=== PATIENT | female | born 1965 ===

== ENCOUNTER 2020-07-27 10:47 | Outpatient (REF) | payer MEDICAID, SELFPAY ==
--- NOTE | 2020-07-27 | MM_ITS ---
EXAMINATION: MM SCREENING DIGITAL BREAST TOMOSYNTHESIS, BILATERAL CLINICAL INFORMATION: Screening. Asymptomatic. The lifetime risk of breast cancer based on the Tyrer-Cuzick Model is 6.8%. COMPARISON: Mammography: January 05, 2019 and studies dating back to February 17, 2010 TECHNIQUE: Digital breast tomosynthesis is performed in both the craniocaudal and mediolateral oblique views along with computer-aided detection (CAD). Synthesized 2D images are generated from the tomosynthesis. FINDINGS: The breasts are heterogeneously dense, which may obscure small masses (ACR BI-RADS breast composition Category c). There are no significant masses, abnormal calcifications, or other abnormalities. There are some stable circumscribed densities seen bilaterally. MM/MM tomosynthesis screening BI IMPRESSION: There are no significant changes from prior study. ASSESSMENT: BI-RADS 1: Negative RECOMMENDATION: Routine annual mammography screening. This patient's information was entered into a reminder system with a target due date for their next mammogram.
== END 2020-07-27 10:48 | disposition home or self-care (01) ==
LOC: HO.MAMMO 10:47
PROVIDERS: PCP Nurse Practitioner Family; Visit Provider Nurse Practitioner Family
DX: Z12.31 Encounter for screening mammogram for malignant neoplasm of breast (principal)
CPT/HCPCS: 77063; 77067

== ENCOUNTER 2021-03-14 18:55 | Emergency (ER) | payer MEDICAID, SELFPAY ==
[2021-03-14 19:41] VITALS: BP 125/75; PULSE 89; RESP 16; TEMP 37.2; O2SAT 95; BMI 35.9
--- NOTE | 2021-03-14 20:14 | ED.EAR ---
HPI - Ear Problem General Chief complaint: Ear Problems Stated complaint: ear pain Time Seen by Provider: 03/14/21 20:08 History of Present Illness HPI Narrative: Patient complains of left ear pain for several days, no injury no fever no chills no dizziness no headache Related Data Previous Rx's Medication Instructions Recorded azithromycin [Zithromax Z-Kostas] 250 mg PO DAILY #4 tab 03/14/21 Allergies Allergy/AdvReac Type Severity Reaction Status Date / Time Penicillins [PCN] Allergy Intermediate RASH Verified 03/14/21 20:57 penicillin G Allergy Unknown Rash Verified 03/14/21 20:57 penicillin V Allergy Unknown Rash Verified 03/14/21 20:57 Review of Systems Review of Systems: positive for left ear pain Negatives are no fever no chills no dizziness no weakness no headache no vision changes no sore throat no cough no rashes no numbness weakness or tingling Yes all other systems are reviewed and are negative PMFSH Past Medical History Source: nursing notes reviewed Medical History (Updated 03/15/21 @ 00:01 by Antonino Mathur) Asthma Diabetes High cholesterol Thyroid disease Social History Social History Advance Directives: No Advance Directives Information Provided: Yes Patient : No Physical Exam Vital Signs: Vital Signs: Last Vital Signs Temp 99.0 F 03/14/21 19:41 Pulse 89 03/14/21 19:41 Resp 16 03/14/21 19:41 BP 125/75 03/14/21 19:41 Pulse Ox 95 03/14/21 19:41 Body Mass Index 35.9 general appearance no distress Pupils equal round reactive to light Extraocular motions are intact Left ear has patent ear canal which is not read there is no tenderness with movement of the auricle or pressing on the tragus The tympanic membrane is red, a scant amount of wax obscures a small piece of the tympanic membrane There is no redness or swelling in the mastoid area behind the ear Right ear has a normal tympanic membrane and normal canal Sinuses are nontender The pharynx is clear with moist mucous membranes no redness swelling or exudate Respiratory no distress Lungs are clear to auscultation bilateral Skin no rashes Course Course Course Narrative: exam is consistent with otitis media and patient is treated with antibiotic Discharge Plan Discharge Clinical Impression: Otitis media Patient Disposition: Home, Self-Care Additional Instructions: We are trying Zithromax for your left ear infection Follow with primary doctor in 2-3 days if not better Return to the ER any time for any worsening pain fever any worse condition or any concerns Prescriptions: New azithromycin [Zithromax Z-Kostas] 250 mg tablet 250 mg PO DAILY Qty: 4 RF: 0 Interventions: ED Discharge Assessment Last Done: 03/14/21 20:59 Discharge Date/Time: 03/14/21 21:06
[2021-03-14] MEDS: Azithromycin 500 MG TABLET PO (21:06)
== END 2021-03-14 21:06 | disposition home or self-care (01) ==
PROVIDERS: Emergency Provider Emergency Medicine
DX: H66.92 Otitis media, unspecified, left ear (principal)
CPT/HCPCS: 99283

== ENCOUNTER 2021-03-29 10:45 | Outpatient (REF) | payer MEDICAID, SELFPAY | END 2021-03-29 10:46 | disposition home or self-care (01) | LOC: HO.LAB 10:45 | PROVIDERS: Visit Provider Internal Medicine | DX: Z20.822 Contact with and (suspected) exposure to COVID-19 (principal) | CPT/HCPCS: C9803; U0003; U0005 ==

== ENCOUNTER 2021-08-08 07:51 | Outpatient (REF) | payer MEDICAID, SELFPAY ==
--- NOTE | ~2021-08-08 | MM_ITS ---
EXAMINATION: MM SCREENING DIGITAL BREAST TOMOSYNTHESIS, BILATERAL CLINICAL INFORMATION: Screening. Asymptomatic. The lifetime risk of breast cancer based on the Tyrer-Cuzick Model is 9%. COMPARISON: Mammography: 07/27/2020, 01/05/2019, 12/30/2017 TECHNIQUE: Digital breast tomosynthesis is performed in both the craniocaudal and mediolateral oblique views along with computer-aided detection (CAD). Synthesized 2D images are generated from the tomosynthesis. FINDINGS: There are scattered areas of fibroglandular density (ACR BI-RADS breast composition Category b). There are no significant masses, abnormal calcifications, or other abnormalities. Humerus remains in small round bilateral calcifications are similar to prior studies. The axilla and skin contours are unremarkable. MM/MM tomosynthesis screening BI IMPRESSION: No mammographic evidence of malignancy. ASSESSMENT: BI-RADS 2: Benign RECOMMENDATION: Routine annual mammography screening. This patient's information was entered into a reminder system with a target due date for their next mammogram.
== END 2021-08-08 07:52 | disposition home or self-care (01) ==
LOC: HO.MAMMO 07:51
PROVIDERS: PCP Nurse Practitioner Primary Care; Visit Provider Nurse Practitioner Primary Care
DX: Z12.31 Encounter for screening mammogram for malignant neoplasm of breast (principal)
CPT/HCPCS: 77063; 77067

== ENCOUNTER → 2021-08-10 09:22 | Outpatient (BNVA) | payer MEDICAID, SELFPAY | PROVIDERS: PCP Nurse Practitioner Primary Care; Visit Provider Surgery Vascular Surgery | DX: I83.11 Varicose veins of right lower extremity with inflammation (principal) | CPT/HCPCS: 99212 ==

== ENCOUNTER 2021-08-31 10:11 | Outpatient (REF) | payer MEDICAID, SELFPAY ==
--- NOTE | ~2021-08-31 | US_ITS ---
EXAMINATION: US LOWER EXTREMITY VENOUS (REFLUX EXAM), BILATERAL CLINICAL INDICATION: This is a 56-year-old female with bilateral lower extremity varicose veins, venous insufficiency. COMPARISON: None. TECHNIQUE: Color flow triplex imaging and compression Doppler was performed to evaluate both the deep and the superficial systems bilaterally. To evaluate the superficial system, the examination was performed in the upright position. Color-flow Doppler ultrasound and compression ultrasound were utilized. In addition, maneuvers were utilized to demonstrate reflux. FINDINGS: 1. DEEP VENOUS ULTRASOUND OF THE RIGHT LOWER EXTREMITY: Common Femoral Vein: Compressible, normal respiratory variation and augmented flow. Femoral vein: Compressible, normal color flow and augmentation. Popliteal Vein: Compressible, normal augmentation. Deep Reflux: There is no evidence of reflux in the deep system in either the common femoral vein or the popliteal vein. There is no evidence of a Fairbanks's cyst. 2. SUPERFICIAL ULTRASOUND WITH DOPPLER OF RIGHT LOWER EXTREMITY: GREAT SAPHENOUS VEIN: Saphenofemoral Junction: 0.4 cm Mid Thigh: 0.3 cm Above Knee: 0.3 cm Below Knee: 0.2 cm Mid Calf: 0.1 cm Ankle: 0.1 cm GSV REFLUX: No evidence of reflux. DUPLICATED GREAT SAPHENOUS VEIN: There is a 0.2 cm lateral duplicated great saphenous vein without reflux to SMALL SAPHENOUS VEIN: Proximal: 0.2 cm Distal: 0.3 cm SSV REFLUX: No evidence of reflux. VEIN OF GIACOMINI: None Imaged. PERFORATORS: There is a 0.2 cm mid calf iv therapy nurse without reflux. VARICOSITIES: All varicose veins visualized are under 0.3 cm. No reflux is seen. 3. DEEP VENOUS ULTRASOUND OF THE LEFT LOWER EXTREMITY: Common Femoral Vein: Compressible, normal respiratory variation and augmented flow. Femoral Vein: Compressible, normal color flow and augmentation. Popliteal Vein: Compressible, normal augmentation. Deep Reflux: There is no evidence of reflux in the deep system in either the common femoral vein or the popliteal vein. There is no evidence of a Fairbanks's cyst. 4. SUPERFICIAL ULTRASOUND WITH DOPPLER OF LEFT LOWER EXTREMITY: GREAT SAPHENOUS VEIN: Saphenofemoral Junction: 0.8 cm Mid Thigh: 0.3 cm Above Knee: 0.3 cm Below Knee: 0.2 cm Mid Calf: 0.3 cm Ankle: 0.3 cm GSV REFLUX: No evidence of reflux. DUPLICATED GREAT SAPHENOUS VEIN: There is a 0.3 cm duplicated lateral great saphenous vein at the junction without reflux. SMALL SAPHENOUS VEIN: Proximal: 0.2 cm Distal: 0.2 cm SSV REFLUX: No evidence of reflux. VEIN OF GIACOMINI: None Imaged. PERFORATORS: There are 0.2 cm calf and thigh perforators without reflux. VARICOSITIES: All varicose veins visualized are under 0.3 cm without reflux. US/US venous duplex LE BI IMPRESSION: 1. There are bilateral patent great saphenous veins, duplicated lateral great saphenous veins and small saphenous veins, respectively, without evidence of reflux. 2. All varicose veins are under 0.3 cm in diameter.
== END 2021-08-31 10:12 | disposition home or self-care (01) ==
LOC: HO.US 10:11
PROVIDERS: PCP Nurse Practitioner Primary Care; Visit Provider Surgery Vascular Surgery
DX: I83.11 Varicose veins of right lower extremity with inflammation (principal)
CPT/HCPCS: 93970

== ENCOUNTER → 2021-09-07 10:18 | Outpatient (BNVA) | payer MEDICAID, SELFPAY | PROVIDERS: PCP Nurse Practitioner Primary Care; Visit Provider Surgery Vascular Surgery | DX: M79.604 Pain in right leg (principal); M79.605 Pain in left leg | CPT/HCPCS: 99212 ==

== ENCOUNTER 2022-09-26 13:03 | Outpatient (REF) | payer MEDICAID, SELFPAY ==
--- NOTE | ~2022-09-26 | US_ITS ---
EXAMINATION: US THYROID CLINICAL INFORMATION: Dysphagia. COMPARISON: None TECHNIQUE: Linear transducer grayscale and color Doppler examination with attention to the region of the thyroid. FINDINGS: Very limited examination, the thyroid gland is atrophic and heterogeneous. SIZE: Measurements of the thyroid lobes and nodules are given in sagittal, anteroposterior and transverse dimensions respectively. Right Thyroid Lobe: 2.5 x 0.7 x 0.9 cm, volume 0.8 mL. Parenchyma: The gland echotexture is heterogeneous. Thyroid vascularity is normal. Left Thyroid Lobe: 2.5 x 0.9 x 1.0 cm, volume 1.2 mL. Parenchyma: The gland echotexture is heterogeneous. Thyroid vascularity is normal. Isthmus: 0.2 cm in maximum AP dimension. No focal thyroid nodule is seen. NODES: There is a 1.9 x 0.4 x 0.8 cm well-defined oblong lymph node with a preserved fatty hilum and normal cortex in the left upper cervical region. US/US thyroid IMPRESSION: Very limited evaluation of the thyroid gland secondary to atrophy and parenchymal heterogeneity which significantly limits evaluation of nodules. Recommend correlation with prior history of thyroiditis or autoimmune disorders. No discrete greater than 1 m thyroid nodules, however as above the evaluation is limited and continue monitoring is recommended depending on the clinical level suspicious. A prominent left upper cervical lymph node appears benign in in morphology and it is likely reactive. However, if there are clinical risk factors for malignancy, a short-term follow-up could ultrasound is recommended to reassess.
== END 2022-09-26 13:04 | disposition home or self-care (01) ==
LOC: HO.US 13:03
PROVIDERS: Visit Provider Nurse Practitioner Primary Care
DX: R13.10 Dysphagia, unspecified (principal)
CPT/HCPCS: 76536

== ENCOUNTER 2023-09-10 10:09 | Outpatient (REF) | payer MEDICAID, SELFPAY ==
--- NOTE | ~2023-09-10 | XR_ITS ---
EXAMINATION: XR CHEST CLINICAL INFORMATION: Weight loss. COMPARISON: None available. TECHNIQUE: 2 views of the chest were obtained. FINDINGS: No significant abnormality is noted involving the heart, lungs, mediastinum, soft tissues. There is moderate right paravertebral dorsal spine spondylosis. XR/XR chest 2V IMPRESSION: Unremarkable chest examination.
[2023-09-10 11:18] LABS: MANUAL DIFF FLAG NO
[2023-09-10 11:29] LABS: Basophils Percent Auto 0.6 % (0-2); Eosinophils Absolute Auto 0.1 X10*3/uL (0.0-0.4); Eosinophils Percent Auto 2.3 % (0-4); Hematocrit 39.7 % (37.0-47.0); Hemoglobin 13.2 g/dl (12.0-16.0); Imm Gran Abs Auto 0.01 X10*3/uL (0.00-0.03); Imm Gran Pct Auto 0.2 % (0.0-0.4); Lymphocytes Percent Auto 32.3 % (20-40); Mean Corpuscular HGB Conc 33.2 g/dl (31.0-35.0); Mean Corpuscular Hemoglobin 28.4 pg (27.0-33.0); Mean Corpuscular Volume 85.4 fL (80.0-98.0); Mean Platelet Volume 10.8 fL (9.4-12.3); Monocytes Absolute Auto 0.5 X10*3/uL (0.1-1.2); Monocytes Percent Auto 7.7 % (2-11); Neutrophils Absolute Auto 3.5 x10*3/uL (2.0-8.3); Neutrophils Percent Auto 56.9 % (45-73); Platelet Count 274 X10*3/uL (160-400); Red Blood Count 4.65 X10*6/uL (4.20-5.50); Red Cell Distribution Width 13.7 % (11.0-16.0); White Blood Count 6.2 X10*3/uL (4.8-10.8)
[2023-09-10 11:32] LABS: Appearance Urine Clear; Color Urine Yellow; Glucose Urine UA Negative (Negative); Leukocyte Esterase Urine Trace (Negative); Nitrite Urine Negative (Negative); PH 5.5 (5.0-9.0); Specific Gravity - Urine 1.015 (1.005-1.025); UMIC TRIGGER UACC YES; Urine Blood Negative (Negative); Urine Ketones Negative (Negative); Urine Protein Negative (Neg-Trace)
[2023-09-10 11:35] LABS: Bacteria Urine None Seen (None Seen); Hyaline Casts Urine 0-2 /LPF (0-2); RBC Urine 0-2 /HPF (0-2); Squamous Epithelial Cell Urine 0-2 /HPF (0-2); WBC Urine 0-5 /HPF (0-5)
[2023-09-10 12:01] LABS: Alanine Aminotransferase 13 U/L (0-31); Albumin Level 4.4 g/dL (3.5-5.0); Alkaline Phosphatase 72 U/L (39-117); Anion Gap 13 (12-20); Aspartate Amino Transferase 16 U/L (5-31); Bilirubin Direct 0.1 mg/dL (0.0-0.5); Bilirubin Total 0.3 mg/dL (0.0-1.0); Blood Urea Nitrogen 8 mg/dL (9-16); Calcium 9.8 mg/dL (8.4-10.2); Carbon Dioxide 26 mmol/L (22-29); Chloride 107 mmol/L (96-108); Estimated Glomerular Filt Rate > 60; Glucose Random 85 mg/dL (60-115); Potassium 3.3 mmol/L (3.3-5.1); Sodium 143 mmol/L (135-145); Total Protein 7.8 g/dL (6.5-8.0)
[2023-09-10 12:09] LABS: Erythrocyte Sedimentation Rate 6 MM/HR (0-20)
[2023-09-10 13:30] LABS: TSH reflex Free T4 0.03 uIU/mL (0.32-4.0)
[2023-09-10 14:51] LABS: Free T4 (Free Thyroxine) 1.39 ng/dL (0.71-1.85)
== END 2023-09-10 10:10 | disposition home or self-care (01) ==
LOC: HO.HHCL 10:09
PROVIDERS: Visit Provider Internal Medicine
DX: R63.4 Abnormal weight loss (principal)
CPT/HCPCS: 36415; 71046; 80048; 80076; 81001; 84439; 84443; 85025; 85652

== ENCOUNTER 2023-09-20 10:18 | Outpatient (REF) | payer MEDICAID, SELFPAY ==
--- NOTE | ~2023-09-20 | MM_ITS ---
EXAMINATION: MM SCREENING DIGITAL BREAST TOMOSYNTHESIS, BILATERAL CLINICAL INFORMATION: Screening. Asymptomatic. COMPARISON: Mammography: 08/08/2021, 07/27/2020, 01/05/2019, 12/30/2017 TECHNIQUE: Digital breast tomosynthesis is performed in both the craniocaudal and mediolateral oblique views along with computer-aided detection (CAD). Synthesized 2D images are generated from the tomosynthesis. FINDINGS: The breasts are heterogeneously dense, which may obscure small masses (ACR BI-RADS breast composition Category c). There are no suspicious masses, suspicious grouped calcifications, or areas of architectural distortion in either breast. The parenchymal pattern is stable from prior exams. There are bilateral punctate scattered benign type calcifications, unchanged from prior. No skin or axillary abnormalities. MM/MM tomosynthesis screening BI IMPRESSION: No mammographic evidence of malignancy. Stable benign findings. ASSESSMENT: BI-RADS BI-RADS 2 - Benign Findings RECOMMENDATION: Routine annual mammography screening. 1 year F/U This examination should not preclude the clinical evaluation of a suspicious palpable abnormality. This patient's information was entered into a reminder system with a target due date for their next mammogram.
== END 2023-09-20 10:19 | disposition home or self-care (01) ==
LOC: HO.MAMMO 10:18
PROVIDERS: PCP Internal Medicine; Visit Provider Internal Medicine
DX: Z12.31 Encounter for screening mammogram for malignant neoplasm of breast (principal)
CPT/HCPCS: 77063; 77067

== ENCOUNTER → 2023-09-20 11:15 | Outpatient (BNV) | payer MEDICAID, SELFPAY | PROVIDERS: PCP Internal Medicine; Visit Provider Radiology Diagnostic Radiology | DX: Z12.31 Encounter for screening mammogram for malignant neoplasm of breast (principal) | CPT/HCPCS: 77063; 77067 ==

== ENCOUNTER 2023-11-17 13:06 | Emergency (ER) | payer MEDICAID, SELFPAY ==
--- NOTE | ~2023-11-17 | XR_ITS ---
EXAMINATION: XR CHEST CLINICAL INFORMATION: Cough, shortness of breath COMPARISON: X-ray 09/10/2023 TECHNIQUE: 2 views of the chest were obtained. FINDINGS: Normal cardiac and mediastinal silhouette. There are airspace opacities in the right mid and lower lung. Bronchial wall thickening in the right lung.. There is bronchial wall thickening and peribronchial opacities in the left mid and lower lung. Findings could reflect infectious or inflammatory process. No significant effusion. No pulmonary edema. No pneumothorax. Thoracic spine degeneration. XR/XR chest 2V IMPRESSION: Bilateral bronchial wall thickening and peribronchial opacities.. Airspace opacities in the right mid and lower lung. Findings are from infectious or inflammatory process.
--- NOTE | 2023-11-17 13:09 | ED.URI ---
HPI - URI/Sore Throat General Chief Complaint: Upper Respiratory Symptoms Stated Complaint: Fever/Cough/Headache Time Seen by Provider: 11/17/23 13:39 Source: patient and hourly sign language interpreter (cameroonian) Mode of arrival: ambulatory Limitations: no limitations History of Present Illness HPI Narrative: 58 year old female with pmhx significant for asthma, HTN, DM, hypothyroid, presents to the emergency department for evaluation of dry cough since being diagnosed with the flu 2 weeks ago. She denies sputum production. She endorses that the cough is worse at night when she lies down to sleep. Denies having to prop herself up with multiple pillows. She has been using her inhaler at home without relief of symptoms. Denies fever, chills, dizziness, headache, sore throat, chest pain, palpitations, difficulty breathing, hemoptysis, N/V, calf pain. Denies recent travel or long car rides. parts interpreter utilized to communicate with patient throughout visit. Related Data Home Medications Medication Instructions Recorded Confirmed alcohol swabs (Alcohol Prep Pads) pad topical DAILY 08/10/21 aspirin 81 mg tablet,delayed 81 mg PO DAILY 08/10/21 release atorvastatin 20 mg tablet 20 mg PO DAILY 08/10/21 blood sugar diagnostic (FreeStyle #10 ea 08/10/21 Lite Strips) cholecalciferol (vitamin D3) 50 50 mcg PO DAILY 08/10/21 mcg (2,000 unit) tablet fluconazole 150 mg tablet 0 mg PO 08/10/21 levothyroxine 88 mcg tablet 88 mcg PO DAILY 08/10/21 lisinopril 40 mg tablet 40 mg PO DAILY 08/10/21 metformin 1,000 mg tablet 1,000 mg PO 08/10/21 metronidazole 0.75 % topical gel topical 08/10/21 Previous Rx's Medication Instructions Recorded azithromycin 250 mg tablet 250 mg PO DAILY #4 tabs 03/14/21 (Zithromax Z-Kostas) azithromycin 250 mg tablet See Rx Instructions PO .COMPLEX #6 11/17/23 (Zithromax) tabs benzonatate 100 mg capsule 100 mg PO BID PRN cough #20 caps 11/17/23 prednisone 20 mg tablet 20 mg PO DAILY 5 days #5 tabs 11/17/23 Allergies Allergy/AdvReac Type Severity Reaction Status Date / Time Penicillins [PCN] Allergy Intermediate RASH Verified 09/07/21 10:25 penicillin G Allergy Unknown Rash Verified 09/07/21 10:25 penicillin V Allergy Unknown Rash Verified 09/07/21 10:25 FORMERLY [facility], [facility] Past Medical History Attestation statement: The following information was validated with the patient. Source: old records reviewed and nursing notes reviewed Medical History Lab test positive for detection of COVID-19 virus Hypercholesteremia Other abnormal glucose Obesity (BMI 30.0-34.9) HTN (hypertension) Hypothyroidism Asthma Thyroid disease High cholesterol Diabetes Social History Social History Patient Tobacco Use Status: Never used Tobacco Advance Directives: No Advance Directives Information Provided: Yes Physical Exam Vital Signs: Vital Signs: Last Vital Signs Temp 97.8 F 11/17/23 13:11 Pulse 85 11/17/23 13:11 Resp 18 11/17/23 13:11 BP 142/82 H 11/17/23 13:11 Pulse Ox 96 11/17/23 13:11 O2 Del Method Room Air 11/17/23 13:11 BMI result Body Mass Index 26.7 Hypertensive, vitals otherwise wnl Const: General: cooperative, healthy appearing, comfortable and no acute distress Orientation/consciousness: patient oriented x3 Limitations: no limitations HEENT: Other: posterior oropharynx without erythema or edema. no tonsillar enlargement or exudates. uvula midline. speaking in complete sentences. Head: Yes normal to inspection, Yes No palpable skull fracture present, Yes normocephalic and Yes atraumatic Ears: hearing grossly normal bilaterally, external ears normal, TM normal on the left, EAC's normal, mastoids normal and no periauricular adenopathy General nose exam: Normal external nose present and No nasal discharge present Eyes: General: appearance normal, both eyes and all related structures Conjunctivae: conjunctivae normal Sclerae: sclerae normal Pupils: Equal, round and reactive pupils present Neck: Neck: Yes normal visual inspection, Yes no lymphadenopathy and Yes no meningeal signs Resp: Effort & Inspection: normal respiratory effort, able to speak in complete sentences, Actively coughing and no respiratory distress Auscultation: clear to auscultation bilaterally Cardio: Jugular venous distension: no JVD Rate: regular rate Rhythm: regular rhythm GI: Inspection: Yes normal to inspection Palpation (GI): Soft to palpation and nontender Skin: General skin exam: no rashes or lesions noted Neuro: General: patient oriented x3, gait normal and no meningeal signs Cranial nerves: Yes Equal, round and reactive pupils present Course Course Course Narrative: This is an RME: Additional HPI, ROS, PE not included below will be deferred to primary provider. Patient is a 58-year-old female presents emergency department for evaluation of 2 weeks with nonproductive cough, chills, dry throat, shortness of breath, headache. Denies any known sick contacts. Reports having an inhaler at home does not provide her any relief. Plan: Viral testing, CXR Reevaluation(s) Reevaluation #1: 1532-- Patient has tested negative for flu, covid, rsv. CXR shows bilateral bronchial wall thickening and peribronchial opacitis along with airspace opacitis in the right-mid and lower lung > concern for atypical pneumonia. Z-Kostas sent to pharmacy to treat for pneumonia. Informed patient of results. Advised her to follow-up with her primary care provider within the next 1-2 weeks for repeat chest x-ray to ensure resolution. Will also send prednisone and Tessalon Perles to pharmacy. Patient has remained stable throughout ED visit today. Discussed worrisome signs and symptoms and when to return to the ED. All questions answered at this time. Patient is agreeable with disposition and stable for discharge. Medications Administered Discontinued Medications Generic Name Dose Route Start Last Admin Trade Name Freq PRN Reason Stop Dose Admin Benzonatate 100 mg 11/17/23 14:14 11/17/23 14:29 Benzonatate 100 Mg Capsule PO 11/17/23 14:15 100 mg ONCE ONE Administration Medical Decision Making Medical Decision Making [facility] Narrative: 58 year old female with pmhx significant for asthma, HTN, DM, hypothyroid, presents to the emergency department for evaluation of dry cough since being diagnosed with the flu 2 weeks ago. Patient hypertensive, vitals otherwise WNL. She is nontoxic-appearing and in no acute distress. Actively coughing on exam. RRR. Lungs CTA bilaterally, no wheezes or rhonchi. No calf tenderness. No JVD or peripheral edema. Differential diagnosis includes viral syndrome, pneumonia. Lower suspicion for pulmonary embolism, ACS, arrhythmia, CHF Plan for virus serology, chest x-ray and re-evaluation. Differential Diagnosis Differential Diagnoses: The differential diagnosis associated with the presentation includes as above. Admission/Observation Not indicated Lab Data MDM Lab Attestation statement: I reviewed the patient's lab results. as above. Labs: Lab Results 11/17/23 Range/Units 13:40 Influenza Type A (PCR) NEGATIVE (Negative) Influenza Type B (PCR) NEGATIVE (Negative) RSV RNA Qual (PCR) NEGATIVE (Negative) SARS-CoV-2 RNA (RT-PCR) NEGATIVE (Negative) Independent Interpretation I performed an independent interpretation of an: Plain X-Ray Interpretation: I have reviewed CXR and agree with radiologist's interpretation. Radiology Impression Discussion of test interpretation with radiology: I have reviewed the radiologist's reading. Radiologist Impression: XR chest 2V IMPRESSION: Bilateral bronchial wall thickening and peribronchial opacities.. Airspace opacities in the right mid and lower lung. Findings are from infectious or inflammatory process. External Record Review External record reviewed: Inpatient record, Office record, Outpatient record, Prior outpatient labs, Prior outpatient radiology, Primary care record and Outside ED record Prescription Management I considered prescription management with: Antibiotic (Azithromycin) Chronic Conditions Patient?s care impacted by: Other (asthma) Discharge Plan Discharge Clinical Impression: Atypical pneumonia Patient Disposition: Home, Self-Care Instructions: Upper Respiratory Infection (ED), Pneumonia (ED) Additional Instructions: You tested negative for covid, flu, and RSV. Your chest xray shows signs of pneumonia. The treatment for this is antibiotics. Azithromycin (z-pack) is an antibiotic that has been sent to your pharmacy treat this. Please take this as prescribed. Do not skip any doses or stop taking this early as this may cause infection to return or worsen. Please follow-up with your primary care provider in 2 weeks for repeat imaging to ensure that the infection has resolved. Prednisone as a steroid that has been sent to your pharmacy. Take this as prescribed for the next 5 days to help with airway inflammation. Tessalon Perles have been sent to your pharmacy. Take this as needed for cough. You tolerated a dose of this in the emergency department today. For new or worsening symptoms, please return to the ED. In the case of emergency, call 911. Ray negativo en covid, gripe y VRS. Kolb radiograf?a de t?rax muestra signos de neumon?a. El tratamiento para esto son los antibi?ticos. Azitromicina (z-pack) es un antibi?nathaniel que se envi? a kolb farmacia para tratar esto. T?rust seg?n lo prescrito. No se salte ninguna dosis ni deje de tomarlo antes de tiempo, ya que esto puede provocar que la infecci?n regrese o empeore. Mitchell un seguimiento con kolb proveedor de atenci?n primaria en 2 semanas para repetir las im?genes y asegurarse de que la infecci?n se haya resuelto. Prednisona álvaro esteroide que anthony sido enviada a kolb farmacia. T?rust seg?n lo prescrito ned los pr?ximos 5 d?as para ayudar con la inflamaci?n de las v?as respiratorias. Tessalon Perles cornelius sido enviados a kolb farmacia. T?rust seg?n sea necesario para la tos. Hoy gab? batool dosis de esto en el departamento de emergencias. Si los s?ntomas son nuevos o empeoran, regrese al servicio de urgencias. En anahi de emergencia, llame al 911. Prescriptions: New benzonatate 100 mg capsule 100 mg PO BID PRN (Reason: cough) Qty: 20 0RF prednisone 20 mg tablet 20 mg PO DAILY 5 Days Qty: 5 0RF azithromycin [Zithromax] 250 mg tablet See Rx Instructions .ROUTE .COMPLEX Qty: 6 0RF Rx Instructions: For 250 mg dose pack: take 500 mg today (day 1), then 250 mg for 4 days (days 2-5) No Action azithromycin [Zithromax Z-Kostas] 250 mg tablet 250 mg PO DAILY Qty: 4 0RF Rx Instructions: We gave 1st dose in ER today Saturday, next dose is tomorrow Anju metronidazole 0.75 % gel topical levothyroxine 88 mcg tablet 88 mcg PO DAILY fluconazole 150 mg tablet 0 mg PO cholecalciferol (vitamin D3) 50 mcg (2,000 unit) tablet 50 mcg PO DAILY lisinopril 40 mg tablet 40 mg PO DAILY metformin 1,000 mg tablet 1,000 mg PO atorvastatin 20 mg tablet 20 mg PO DAILY alcohol swabs [Alcohol Prep Pads] Pads, Medicated topical DAILY aspirin 81 mg tablet,delayed release (DR/EC) 81 mg PO DAILY (DME) FreeStyle Lite Strips Strip See Rx Instructions Not Applicable DAILY Qty: 10 Rx Instructions: As directed Referrals: Jin Allen MD [Primary Care Provider] - Interventions: ED Discharge Assessment Last Done: 11/17/23 15:35 Discharge Date/Time: 11/17/23 15:36 Print Language: Lao
[2023-11-17 13:11] VITALS: BP 142/82; PULSE 85; RESP 18; TEMP 36.6; O2SAT 96; BMI 26.7
[2023-11-17 14:22] LABS: Influenza A PCR NEGATIVE (Negative); Influenza B PCR NEGATIVE (Negative); Resp Syncy Virus RNA Qual PCR NEGATIVE (Negative); SARS COV2 PCR INHOUSE NEGATIVE (Negative)
[2023-11-17] MEDS: Benzonatate 100 MG CAPSULE PO (14:29)
== END 2023-11-17 15:36 | disposition home or self-care (01) ==
PROVIDERS: Nurse Practitioner Family; Emergency Provider Emergency Medicine; PCP Internal Medicine
DX: J18.9 Pneumonia, unspecified organism (principal); R50.9 Fever, unspecified; R05.9 Cough, unspecified; R51.9 Headache, unspecified; I10 Essential (primary) hypertension; Z11.52 Encounter for screening for COVID-19; Z20.822 Contact with and (suspected) exposure to COVID-19; Z79.84 Long term (current) use of oral hypoglycemic drugs; Z79.899 Other long term (current) drug therapy
CPT/HCPCS: 0241U; 71046; 99282; 99283

== ENCOUNTER 2023-11-18 14:56 | Emergency (ER) | payer MEDICAID, SELFPAY ==
--- NOTE | ~2023-11-18 | XR_ITS ---
EXAMINATION: XR CHEST CLINICAL INFORMATION: Worsening cough, pneumonia. COMPARISON: Chest radiograph 11/17/2023. TECHNIQUE: 2 views of the chest were obtained. FINDINGS: Peribronchial thickening and multifocal consolidative opacities are not convincingly changed. No pleural effusion or pneumothorax. Normal appearance of the cardiomediastinal silhouette. Thoracic spondylosis. No acute osseous findings. XR/XR chest 2V IMPRESSION: No significant change compared to chest radiograph from the day before.
[2023-11-18 15:15] VITALS: BP 134/80; PULSE 75; O2SAT 100
[2023-11-18 16:46] VITALS: BP 154/67; PULSE 74; RESP 16; TEMP 36.7; O2SAT 99; BMI 25.9
--- NOTE | 2023-11-18 16:46 | ED.SOB ---
HPI - SOB/Dyspnea General Chief Complaint: Dyspnea Stated Complaint: SOB,PNA T-1,MEDS NOT WORKING PER EMS Time Seen by Provider: 11/18/23 18:14 Source: patient and RN notes reviewed Mode of arrival: EMS Limitations: language barrier History of Present Illness HPI Narrative: 58-year-old female presents for evaluation of cough and shortness of breath. She was seen here yesterday and diagnosed with atypical pneumonia. She was discharged with azithromycin, prednisone and benzonatate Perles. She reports no improvement in her symptoms and feels that her cough is worse No new symptoms Related Data Home Medications Medication Instructions Recorded Confirmed alcohol swabs (Alcohol Prep Pads) pad topical DAILY 08/10/21 aspirin 81 mg tablet,delayed 81 mg PO DAILY 08/10/21 release atorvastatin 20 mg tablet 20 mg PO DAILY 08/10/21 blood sugar diagnostic (FreeStyle #10 ea 08/10/21 Lite Strips) cholecalciferol (vitamin D3) 50 50 mcg PO DAILY 08/10/21 mcg (2,000 unit) tablet fluconazole 150 mg tablet 0 mg PO 08/10/21 levothyroxine 88 mcg tablet 88 mcg PO DAILY 08/10/21 lisinopril 40 mg tablet 40 mg PO DAILY 08/10/21 metformin 1,000 mg tablet 1,000 mg PO 08/10/21 metronidazole 0.75 % topical gel topical 08/10/21 Previous Rx's Medication Instructions Recorded azithromycin 250 mg tablet 250 mg PO DAILY #4 tabs 03/14/21 (Zithromax Z-Kostas) azithromycin 250 mg tablet See Rx Instructions PO .COMPLEX #6 11/17/23 (Zithromax) tabs benzonatate 100 mg capsule 100 mg PO BID PRN cough #20 caps 11/17/23 prednisone 20 mg tablet 20 mg PO DAILY 5 days #5 tabs 11/17/23 cefuroxime axetil 500 mg tablet 500 mg PO Q12H #13 tabs 11/18/23 Allergies Allergy/AdvReac Type Severity Reaction Status Date / Time Penicillins [PCN] Allergy Intermediate RASH Verified 09/07/21 10:25 penicillin G Allergy Unknown Rash Verified 09/07/21 10:25 penicillin V Allergy Unknown Rash Verified 09/07/21 10:25 Review of Systems Constitutional: Constitutional: Denies body ache(s), Reports chills, Denies fever(s), Reports malaise and Reports weakness Eyes: Eyes: Denies blurry vision Cardiovascular: Cardiovascular: Denies chest pain, Denies leg edema and Reports dyspnea Respiratory: Respiratory: Reports chest congestion, Reports cough and Reports dyspnea Gastrointestinal: Gastrointestinal: Denies abdominal pain, Denies nausea and Denies vomiting Musculoskeletal: Musculoskeletal: Denies back pain Integumentary/Breasts: Skin/Breast: Denies rash Neurologic: Reports weakness PMFSH Past Medical History Medical History Lab test positive for detection of COVID-19 virus Hypercholesteremia Other abnormal glucose Obesity (BMI 30.0-34.9) HTN (hypertension) Hypothyroidism Asthma Thyroid disease High cholesterol Diabetes Social History Social History Patient Tobacco Use Status: Never used Tobacco Advance Directives: No Advance Directives Information Provided: No Physical Exam Vital Signs: Vital Signs: Last Vital Signs Temp 98.1 F 11/18/23 16:46 Pulse 74 11/18/23 16:46 Resp 16 11/18/23 16:46 BP 154/67 H 11/18/23 16:46 Pulse Ox 99 11/18/23 16:46 O2 Del Method Room Air 11/18/23 16:46 BMI result Body Mass Index 25.9 Const: General: healthy appearing, comfortable, no acute distress, alert and awake Nutritional Appearance: well nourished Orientation/consciousness: patient oriented x3 HEENT: Head: Yes normocephalic and Yes atraumatic Eyes: Eyelids: Yes eyelids normal Conjunctivae: conjunctivae normal Sclerae: sclerae normal Corneas: corneas normal Pupils: Equal, round and reactive pupils present EOM: EOMs intact bilaterally Neck: Neck: Yes full ROM Resp: Effort & Inspection: normal respiratory effort, able to speak in complete sentences, no audible wheezes and not labored Auscultation: clear to auscultation bilaterally Cardio: Rate: regular rate Rhythm: regular rhythm Skin: General skin exam: elasticity normal Neuro: General: patient oriented x3 Cranial nerves: Yes Equal, round and reactive pupils present and Yes Bilaterally intact EOM present Cognition (Neuro): normal cognition Course Course Course Narrative: RME:?58 yo english speaking female w/ hx of asthma, HTN, DM, hypothyroid, BIBA for eval of cough since testing positive for Flu at home 2 wks ago. Seen here yesterday. Tested negative for covid/flu/rsv. vitals wnl. not hypoxic. exam benign. CXR showing atypial pneumonia- d/c home with zpak, prednisone and tessalon perrles. has been taking medications without relief of symptoms. took 2 doses of azithromycin. states her cough is worse than yesterday. her medications are written in Nepali and she states she has been unable to read the instructions on them. she seems confused about when to take these medications. PE: +crackles to right lung base, afebrile, not hypoxic. given PNA, will order repeat cxr Full HPI, ROS and PE to be performed by the primary ED provider. Medical Decision Making Medical Decision Making [facility] Narrative: Patient presents for evaluation of continued cough, shortness of breath. She was diagnosed with pneumonia yesterday. She is not hypoxic, febrile, tachycardic or tachypneic. Chest x-ray reveals essentially unchanged imaging. The patient is able to tolerate p.o.. An ambulation trial was obtained with O2 monitoring the patient's oxygen saturation remained 96% or higher. I discussed with the patient that she should not expect to be 100% better within 24 hours of starting antibiotic use. I will add on a beta-lactam to complete coverage for community-acquired pneumonia. The patient is stable for discharge Differential Diagnosis Differential Diagnoses: The differential diagnosis associated with the presentation includes Pneumonia Outpatient Cough COVID-19 Influenza Discharge Plan Discharge Clinical Impression: Community acquired pneumonia Patient Disposition: Home, Self-Care Instructions: Community Acquired Pneumonia (ED) Additional Instructions: Your x-ray appears essentially unchanged. Continue your home medications as prescribed Take cefuroxime twice daily for 7 days in addition to your yesterday It usually takes at least 2 days before you see improvement from the antibiotics Call your primary doctor to schedule follow-up Return for new or worsening symptoms Prescriptions: New cefuroxime axetil 500 mg tablet 500 mg PO Q12H Qty: 13 0RF No Action azithromycin [Zithromax Z-Kostas] 250 mg tablet 250 mg PO DAILY Qty: 4 0RF Rx Instructions: We gave 1st dose in ER today Saturday, next dose is tomorrow Saturday benzonatate 100 mg capsule 100 mg PO BID PRN (Reason: cough) Qty: 20 0RF prednisone 20 mg tablet 20 mg PO DAILY 5 Days Qty: 5 0RF azithromycin [Zithromax] 250 mg tablet See Rx Instructions .ROUTE .COMPLEX Qty: 6 0RF Rx Instructions: For 250 mg dose pack: take 500 mg today (day 1), then 250 mg for 4 days (days 2-5) metronidazole 0.75 % gel topical levothyroxine 88 mcg tablet 88 mcg PO DAILY fluconazole 150 mg tablet 0 mg PO cholecalciferol (vitamin D3) 50 mcg (2,000 unit) tablet 50 mcg PO DAILY lisinopril 40 mg tablet 40 mg PO DAILY metformin 1,000 mg tablet 1,000 mg PO atorvastatin 20 mg tablet 20 mg PO DAILY alcohol swabs [Alcohol Prep Pads] Pads, Medicated topical DAILY aspirin 81 mg tablet,delayed release (DR/EC) 81 mg PO DAILY (DME) FreeStyle Lite Strips Strip See Rx Instructions Not Applicable DAILY Qty: 10 Rx Instructions: As directed
[2023-11-18] MEDS: cefuroxime axetiL 500 MG TABLET PO (18:48)
== END 2023-11-18 18:52 | disposition home or self-care (01) ==
PROVIDERS: Emergency Provider Emergency Medicine; PCP Internal Medicine
DX: J18.9 Pneumonia, unspecified organism (principal); J45.909 Unspecified asthma, uncomplicated; I10 Essential (primary) hypertension; E11.9 Type 2 diabetes mellitus without complications; Z88.0 Allergy status to penicillin
CPT/HCPCS: 71046; 99282; 99283

== ENCOUNTER 2023-12-02 09:30 | Outpatient (REF) | payer MEDICAID, SELFPAY ==
--- NOTE | ~2023-12-02 | XR_ITS ---
EXAMINATION: XR CHEST CLINICAL INFORMATION: Atypical pneumonia. Evaluate for resolution. COMPARISON: 11/18/2023 TECHNIQUE: 2 views of the chest were obtained. FINDINGS: The lungs are well expanded. Interval improvement in right upper lobe consolidation as well as multifocal patchy airspace disease. No pleural effusion. Cardiac silhouette is unchanged. XR/XR chest 2V IMPRESSION: Interval improvement.
[2023-12-02 11:54] LABS: Cholesterol 163 mg/dL (<200); HDL Cholesterol 58 mg/dL (>40); LDL Cholesterol Calculated 89 mg/dL (<100); Triglycerides 83 mg/dL (<150)
[2023-12-02 12:27] LABS: Folate 5.3 ng/mL (> or = 4.0); Vitamin B12 277 pg/mL (200-900)
== END 2023-12-02 09:31 | disposition home or self-care (01) ==
LOC: HO.HHCL 09:30
PROVIDERS: Visit Provider Nurse Practitioner Primary Care
DX: J18.9 Pneumonia, unspecified organism (principal); E11.69 Type 2 diabetes mellitus with other specified complication; E78.5 Hyperlipidemia, unspecified
CPT/HCPCS: 36415; 71046; 80061; 82607; 82746

== ENCOUNTER 2024-01-17 09:09 | Outpatient (REF) | payer MEDICAID, SELFPAY ==
[2024-01-17 12:46] LABS: TSH reflex Free T4 0.76 uIU/mL (0.32-4.0)
== END 2024-01-17 09:10 | disposition home or self-care (01) ==
LOC: HO.HHCL 09:09
PROVIDERS: Visit Provider Nurse Practitioner Primary Care
DX: E03.9 Hypothyroidism, unspecified (principal)
CPT/HCPCS: 36415; 84443

== ENCOUNTER 2024-01-22 08:47 | Outpatient (REF) | payer MEDICAID, SELFPAY ==
--- NOTE | ~2024-01-22 | US_ITS ---
EXAMINATION: US THYROID CLINICAL INFORMATION: Dysphagia. COMPARISON: Ultrasound soft tissue head/neck thyroid dated 09/26/2022. TECHNIQUE: Linear transducer grayscale and color Doppler examination with attention to the region of the thyroid. FINDINGS: SIZE: Measurements of the thyroid lobes and nodules are given in sagittal, anteroposterior and transverse dimensions respectively. Right Thyroid Lobe: 3.0 x 1.0 x 0.8 cm, volume 1.2 mL. Previously 2.5 x 0.7 x 0.9 cm, volume 0.8 mL. Parenchyma: The gland echotexture is heterogeneous. Thyroid vascularity is normal. Left Thyroid Lobe: 2.1 x 0.8 x 0.6 cm, volume 0.5 mL. Previously 2.5 x 0.9 x 1.0 cm, volume 1.2 mL. Parenchyma: The gland echotexture is heterogeneous. Thyroid vascularity is normal. Isthmus: 0.3 cm in maximum AP dimension. Previously 0.2 cm. No focal thyroid nodule is seen. NODES: No lymphadenopathy is seen in the tissue surrounding the thyroid gland. US/US thyroid IMPRESSION: Small heterogeneous thyroid gland with normal vascularity. ACR TI-RADS RECOMMENDATION REFERENCE: Ultrasound-guided fine-needle aspiration, follow up ultrasound, no further followup. * TR1 (0 point) and TR2 (2 points): No FNA or followup * TR3 (3 points): FNA if more than or equal to 2.5 cm in maximum dimension, follow up ultrasound in 1, 3 and 5 years if 1.5 to 2.4 cm in maximum dimension. * TR4 (4-6 points): FNA if more than or equal to 1.5 cm in maximum dimension, follow up ultrasound in 1, 2, 3 and 5 years if 1 to 1.4 cm in maximum dimension. * TR5 (more than or equal to 7 points): FNA if more than or equal to 1 cm in maximum dimension, follow up ultrasound every year for 5 years if 0.5 to 0.9 cm in maximum dimension. * TR3, TR4 or TR5 nodules that are below the size threshold for follow up receive no followup.
== END 2024-01-22 08:48 | disposition home or self-care (01) ==
LOC: HO.US 08:47
PROVIDERS: PCP Internal Medicine; Visit Provider Nurse Practitioner Primary Care
DX: R13.10 Dysphagia, unspecified (principal)
CPT/HCPCS: 76536

== ENCOUNTER 2024-07-27 17:19 | Outpatient (REF) | payer MEDICAID, SELFPAY ==
[2024-07-28 10:24] LABS: HPV 16,18/45 See PAP report
== END 2024-07-27 17:20 | disposition home or self-care (01) ==
LOC: HO.HHCLNP 17:19
PROVIDERS: Visit Provider Advanced Practice Midwife
DX: Z01.419 Encounter for gynecological examination (general) (routine) without abnormal findings (principal)
CPT/HCPCS: 87624; 88175

== ENCOUNTER 2024-08-15 11:38 | Emergency (ER) | payer MEDICAID, SELFPAY ==
--- NOTE | ~2024-08-15 | XR_ITS ---
EXAMINATION: 1. RADIOGRAPHS LEFT SHOULDER 2. RADIOGRAPHS LEFT HUMERUS CLINICAL INFORMATION: Fall 2 weeks ago COMPARISON: None TECHNIQUE: 3 views of the left shoulder and 2 views of the left humerus were obtained. Today's examination is mildly limited secondary to difficulties with patient positioning. FINDINGS: No fracture of the left humerus. Left humeral head demonstrates good articulation with the glenoid fossa. There are mild degenerative changes of the glenohumeral and acromioclavicular joints. Visualized portion of the left elbow are grossly unremarkable. Visualized left-sided ribs and lung parenchyma are unremarkable. There are degenerative changes within visualized portions of the thoracic spine. XR/XR humerus LT IMPRESSION: Mild degenerative changes of the left shoulder without fracture or dislocation. Electronically signed by: Prateek Tuttle MD 08/15/2024 12:29 PM [facility]
--- NOTE | ~2024-08-15 | XR_ITS ---
EXAMINATION: 1. RADIOGRAPHS LEFT SHOULDER 2. RADIOGRAPHS LEFT HUMERUS CLINICAL INFORMATION: Fall 2 weeks ago COMPARISON: None TECHNIQUE: 3 views of the left shoulder and 2 views of the left humerus were obtained. Today's examination is mildly limited secondary to difficulties with patient positioning. FINDINGS: No fracture of the left humerus. Left humeral head demonstrates good articulation with the glenoid fossa. There are mild degenerative changes of the glenohumeral and acromioclavicular joints. Visualized portion of the left elbow are grossly unremarkable. Visualized left-sided ribs and lung parenchyma are unremarkable. There are degenerative changes within visualized portions of the thoracic spine. XR/XR shoulder LT min 2V IMPRESSION: Mild degenerative changes of the left shoulder without fracture or dislocation. Electronically signed by: Prateek Tuttle MD 08/15/2024 12:29 PM [facility] PRADHAN
[2024-08-15 11:42] VITALS: BP 148/97; PULSE 62; RESP 18; TEMP 36.4; O2SAT 100; BMI 29.7
--- NOTE | 2024-08-15 11:47 | ED.UPPEXIN ---
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 She states that while changing her bed sheets, her shoe became caught causing her to fall forward onto her left shoulder. Denies head strike or LOC. She is not on anticoagulation. Reports continued left shoulder pain over the last 2 weeks. Taking Tylenol at home with minimal improvement. Reports pain primarily on lifting the left shoulder. Denies previous surgeries/ injury to shoulder. Denies numbness/tingling/weakness of the left upper extremity. Denies fever/ chills, headache, chest pain, neck or back pain. Related Data Home Medications ?Medication ?Instructions ?Recorded ?Confirmed alcohol swabs (Alcohol Prep Pads) pad topical DAILY 08/10/21 aspirin 81 mg tablet,delayed 81 mg PO DAILY 08/10/21 release atorvastatin 20 mg tablet 20 mg PO DAILY 08/10/21 blood sugar diagnostic (FreeStyle #10 ea 08/10/21 Lite Strips) cholecalciferol (vitamin D3) 50 50 mcg PO DAILY 08/10/21 mcg (2,000 unit) tablet fluconazole 150 mg tablet 0 mg PO 08/10/21 levothyroxine 88 mcg tablet 88 mcg PO DAILY 08/10/21 lisinopril 40 mg tablet 40 mg PO DAILY 08/10/21 metformin 1,000 mg tablet 1,000 mg PO 08/10/21 metronidazole 0.75 % topical gel topical 08/10/21 Previous Rx's ?Medication ?Instructions ?Recorded azithromycin 250 mg tablet 250 mg PO DAILY #4 tabs 03/14/21 (Zithromax Z-Kostas) azithromycin 250 mg tablet See Rx Instructions PO .COMPLEX #6 11/17/23 (Zithromax) tabs benzonatate 100 mg capsule 100 mg PO BID PRN cough #20 caps 11/17/23 prednisone 20 mg tablet 20 mg PO DAILY 5 days #5 tabs 11/17/23 cefuroxime axetil 500 mg tablet 500 mg PO Q12H #13 tabs 11/18/23 lidocaine 5 % topical patch 1 patch topical DAILY #15 ea 08/15/24 (Lidoderm) naproxen 500 mg tablet 500 mg PO Q12H PRN pain (scale 08/15/24 score 4-6) #20 tabs Allergies Allergy/AdvReac Type Severity Reaction Status Date / Time Penicillins [PCN] Allergy Intermediate RASH Verified 08/15/24 11:45 penicillin G Allergy Unknown Rash Verified 08/15/24 11:45 penicillin V Allergy Unknown Rash Verified 08/15/24 11:45 Review of Systems Review of Systems: Constitutional: No fever, chills, fatigue, night sweats, weight changes ENT/Mouth: No ear pain, hearing loss, nasal congestion, sinus pain, rhinorrhea, sore throat Eyes: No eye pain, swelling, redness, vision changes, discharge Cardio: No chest pain, palpitations, WILLETT, orthopnea, peripheral edema Pulm: No SOB, cough, sputum, wheezing, dyspnea, hemoptysis GI: No nausea, vomiting, hematemesis, abdominal pain, diarrhea, constipation, hematochezia, melena : No irregular bleeding, dysuria, frequency, urgency, hesitancy, hematuria, flank pain, urinary flow changes, urinary incontinence or retention MSK: No back pain, neck pain, joint pain, myalgias, +left shoulder pain Skin: No lesions, rashes Neuro: No weakness, numbness, paresthesias, LOC, dizziness, headache Psych: No anxiety/panic, depression, SI/HI, AH/VH All other systems reviewed and are negative. [facility] Past Medical History Attestation statement: The following information was validated with the patient. Source: old records reviewed and nursing notes reviewed Medical History Lab test positive for detection of COVID-19 virus Hypercholesteremia Other abnormal glucose Obesity (BMI 30.0-34.9) HTN (hypertension) Hypothyroidism Asthma Thyroid disease High cholesterol Diabetes Social History Social History Patient Tobacco Use Status: Never used Tobacco Advance Directives: No Advance Directives Information Provided: No Do you have a plan to hurt others: No Plan Physical Exam Vital Signs: Vital Signs: Last Vital Signs Temp 97.5 F 08/15/24 11:42 Pulse 62 08/15/24 11:42 Resp 18 08/15/24 11:42 BP 148/97 H 08/15/24 11:42 Pulse Ox 100 08/15/24 11:42 O2 Del Method Room Air 08/15/24 11:42 BMI result Body Mass Index 29.7 Hypertensive, vitals otherwise WNL General: Well appearing, in no acute distress. Skin: Warm, dry, intact. No rashes or lesions. Head: Normocephalic, atraumatic. EENT: Hearing is intact b/l. Conjunctiva clear. PERRLA. EOM intact. Moist mucous membranes.? Neck: Supple without LAD Cardiac: Chest wall symmetric. RRR. Lungs: Normal respiratory effort without accessory muscle use. CTA bilaterally Abdomen: Soft, non-tender, non-distended. No rebound tenderness or guarding. Back: No midline spinous or paraspinal tenderness. No step off deformity. Ext: +no overlying skin changes/ deformities. she is tender to palpation over lateral aspect of left shoulder and proximal humerus. No palpable deformity, crepitus. Limited ROM primarily with abduction. Chief Construction Inspector strength intact. Full ROM intact to left elbow, left wrist and all digits. Neurovascularly intact distally. Neuro: AOx3. Normal speech. Ambulating with steady gait. Psych: Appropriate mood and affect. Responds appropriately to questions. Course Course Course Narrative: This is a Rapid Medical Exam performed in triage by Shawanda Miller PA-C. Full HPI, ROS and PE to be performed by primary ED provider. 59-year-old female with a past medical history of hypothyroid, asthma, diabetes, HLD, HTN, presenting to the ED c/o left shoulder/ upper arm pain s/p fall off bed 2 weeks ago while changing sheets. Denies head trauma or LOC. Denies anticoagulation use PE: + tenderness to left shoulder and proximal humerus. Limited ROM secondary to pain. Neurovascularly intact distally. Mild swelling. No deformity Plan: XRs Reevaluation(s) Reevaluation #1: 6534 -- xr left shoulder/ humerus without fracture or dislocation. they do show degenerative changes within the shoulder joint. exam concerning for rotator cuff injury - difficulty with abduction. patient placed in sling. will send lido patches and naproxen to pharmacy. she tells me her blood sugar is not well controlled. intermittent compliance with her DM medications. will hold on prednisone to avoid hyperglycemia. advised to follow up with ortho - referral provided. Patient has remained stable throughout ED visit today. Discussed worrisome signs and symptoms and when to return to the ED. All questions answered at this time. Patient is agreeable with disposition and stable for discharge. Medical Decision Making Medical Decision Making MDM Narrative: 59 year old female with pmhx significant for hypothyroidism, asthma, type 2 diabetes, HDL, hypertension presents to the ED today for evaluation of left shoulder pain s/p mechanical fall 2 weeks ago. Patient is hypertensive to 148/97, vitals otherwise WNL. She is nontoxic-appearing and in no acute distress. itting comfortably on the exam bed. On exam, there are no over lying skin changes/ deformities. she is tender to palpation over lateral aspect of left shoulder and proximal humerus. No palpable deformity, crepitus. Limited ROM primarily with abduction. Chief Construction Inspector strength intact. Full ROM intact to left elbow, left wrist and all digits. Neurovascularly intact distally. Differential diagnosis includes contusion, rotator cuff injury, tendinitis, bursitis, fracture, dislocation Plan for imaging, pain control, re-evaluation. Differential Diagnosis Differential Diagnoses: The differential diagnosis associated with the presentation includes As above Admission/Observation Not indicated Independent Interpretation I performed an independent interpretation of an: Plain X-Ray Interpretation: X-ray left shoulder/humerus without fracture Radiology Impression Discussion of test interpretation with radiology: I have reviewed the radiologist's reading. Radiologist Impression: EXAMINATION: 1. RADIOGRAPHS LEFT SHOULDER 2. RADIOGRAPHS LEFT HUMERUS CLINICAL INFORMATION: Fall 2 weeks ago COMPARISON: None TECHNIQUE: 3 views of the left shoulder and 2 views of the left humerus were obtained. Today's examination is mildly limited secondary to difficulties with patient positioning. FINDINGS: No fracture of the left humerus. Left humeral head demonstrates good articulation with the glenoid fossa. There are mild degenerative changes of the glenohumeral and acromioclavicular joints. Visualized portion of the left elbow are grossly unremarkable. Visualized left-sided ribs and lung parenchyma are unremarkable. There are degenerative changes within visualized portions of the thoracic spine. XR/XR shoulder LT min 2V IMPRESSION: Mild degenerative changes of the left shoulder without fracture or dislocation. Electronically signed by: Prateek Tuttle MD 08/15/2024 12:29 PM [facility] [place] Independent Historian Clinical information obtained from an independent historian. History obtained from or confirmed by: Friend External Record Review External record reviewed: Inpatient record Prescription Management I considered prescription management with: Pain Medication (naproxen, lido patch) Chronic Conditions Patient?s care impacted by: Diabetes Social Determinants Patient?s care significantly limited by Social Determinants of Health including: Other Social Determinant of Health Procedures Orthopedic Splinting/Casting Injury #1: Side: left Upper Extremity Injury Location: shoulder Upper Extremity Immobilizer: sling/shoulder immobilizer Critical Care Time Critical Care Time Critical Care Time: No Discharge Plan Discharge Clinical Impression: Left shoulder strain Patient Disposition: Home, Self-Care Instructions: Muscle Strain (ED), Rotator Cuff Injury (ED), How to Use a Sling (ED), Shoulder Immobilizer (ED) Additional Instructions: You were evaluated in the ED today for left shoulder pain. The x-ray of your left shoulder and left upper arm are normal. They do show some degenerative changes however do not demonstrate fracture or dislocation. Your physical exam is concerning for injury to your rotator cuff muscle region. You were provided with a shoulder sling. Please wear this until follow up with either PCP or orthopedics. You have been provided with a referral to an orthopedic doctor. Call them Saturday morning to schedule an appointment. They will not call you. In the meantime, naproxen has been sent to your pharmacy for you to take as needed for pain control. This will also help with any inflammation. I have also sent lidocaine patches to your pharmacy. apply these to painful areas. Apply heat to the area. Return with new or worsening symptoms. In the case of an emergency, call 911. Prescriptions: New naproxen 500 mg tablet 500 mg PO Q12H PRN (Reason: pain (scale score 4-6)) Qty: 20 0RF lidocaine [Lidoderm] 5 % adhesive patch,medicated 1 patch topical DAILY Qty: 15 0RF Rx Instructions: leave on most painful area for up to 12 hrs No Action azithromycin [Zithromax Z-Kostas] 250 mg tablet 250 mg PO DAILY Qty: 4 0RF Rx Instructions: We gave 1st dose in ER today Saturday, next dose is tomorrow Saturday benzonatate 100 mg capsule 100 mg PO BID PRN (Reason: cough) Qty: 20 0RF prednisone 20 mg tablet 20 mg PO DAILY 5 Days Qty: 5 0RF azithromycin [Zithromax] 250 mg tablet See Rx Instructions .ROUTE .COMPLEX Qty: 6 0RF Rx Instructions: For 250 mg dose pack: take 500 mg today (day 1), then 250 mg for 4 days (days 2-5) cefuroxime axetil 500 mg tablet 500 mg PO Q12H Qty: 13 0RF metronidazole 0.75 % gel topical levothyroxine 88 mcg tablet 88 mcg PO DAILY fluconazole 150 mg tablet 0 mg PO cholecalciferol (vitamin D3) 50 mcg (2,000 unit) tablet 50 mcg PO DAILY lisinopril 40 mg tablet 40 mg PO DAILY metformin 1,000 mg tablet 1,000 mg PO atorvastatin 20 mg tablet 20 mg PO DAILY alcohol swabs [Alcohol Prep Pads] Pads, Medicated topical DAILY aspirin 81 mg tablet,delayed release (DR/EC) 81 mg PO DAILY (DME) FreeStyle Lite Strips Strip See Rx Instructions Not Applicable DAILY Qty: 10 Rx Instructions: As directed Referrals: [facility] [place] Orthopedic Surgeons [Provider Group] - 2 days (left rotator cuff injury) Print Language: Malian
--- NOTE | 2024-08-15 12:48 | MHC.EDTECH ---
left shoulder sling in place as per PA order, pt tolerated well
[2024-08-15] MEDS: Acetaminophen 325 MG TABLET 975 MG PO (13:12)
[2024-08-15 13:16] VITALS: BP 148/97; PULSE 62; RESP 18; TEMP 36.4; O2SAT 100
== END 2024-08-15 13:22 | disposition home or self-care (01) ==
PROVIDERS: Emergency Provider Emergency Medicine
DX: S46.912A Strain of unspecified muscle, fascia and tendon at shoulder and upper arm level, left arm, initial encounter (principal); W18.39XA Other fall on same level, initial encounter; E11.9 Type 2 diabetes mellitus without complications; I10 Essential (primary) hypertension; E78.00 Pure hypercholesterolemia, unspecified; J45.909 Unspecified asthma, uncomplicated; Y93.E9 Activity, other interior property and clothing maintenance; Y92.032 Bedroom in apartment as the place of occurrence of the external cause; Y99.9 Unspecified external cause status; Z79.82 Long term (current) use of aspirin; Z79.84 Long term (current) use of oral hypoglycemic drugs; Z79.02 Long term (current) use of antithrombotics/antiplatelets
CPT/HCPCS: 73030; 73060; 99283

== ENCOUNTER 2024-09-22 08:04 | Outpatient (REF) | payer MEDICAID, SELFPAY | END 2024-09-22 08:05 | disposition home or self-care (01) | LOC: HO.MAMMO 08:04 | PROVIDERS: Visit Provider Advanced Practice Midwife | DX: Z12.31 Encounter for screening mammogram for malignant neoplasm of breast (principal) | CPT/HCPCS: 77063; 77067 ==

== ENCOUNTER → 2024-09-22 09:00 | Outpatient (BNV) | payer MEDICAID, SELFPAY | PROVIDERS: Visit Provider Internal Medicine | DX: Z12.31 Encounter for screening mammogram for malignant neoplasm of breast (principal) | CPT/HCPCS: 77063; 77067 ==

== ENCOUNTER 2024-11-18 08:03 | Outpatient (REF) | payer MEDICAID, SELFPAY ==
--- OUTSIDE RECORDS SUMMARY | 2024-11-18 08:16 | XMS_ITS | Encounter Summary ---
Author Organization [employer] Address [address] [facility] [address] [place] [address] Care Team Providers Care Parcel Post Delivery Name Role Phone Luz Elena Allen Primary Care Provider Reason for Visit * Reason Comments Pre-visit Planning Pre-visit planning - LVM Encounter Details Date Type Department Care Team ([facility] st Contact Info) Description 10/21/2024 Patient Outreach [facility] MEDICINE [address] [place] [address] Luz Elena Allen ANP [address] [place] [address] Pre-visit Planning (Pre-visit planning - LVM ) Social History Tobacco Use Types Packs/Day Years Used Date Smoking Tobacco: Never Passive Smoke Exposure: Never Smokeless Tobacco: Never Alcohol Use Standard Drinks/Week Comments Never 0 (1 standard drink = 0.6 oz pur e alcohol) Housing Stability Answer Date Recorded What is your housing situation today? I have dominick carnes 10/02/[address] you li ve. Do you have problems with any of the following? None of the above 10/02/2023 Food Insecurity Answer Date Recorded Within the past 12 months, y ou worried that your food would run out before you got money to buy more: Never True 10/02/2023 Within the past 12 months,th e food you bought just didn't last and you didn't have enough money to get more: Never True 06/2024 Transportation Answer Date Recorded In the past 12 months, has l ack of transportation kept you from medical appts, meetings, work or from getting things needed for daily living? No 10/02/2023 Utilities Answer Date Recorded In the past 12 months, has t he electric, gas, oil or water company threatened to shut off services in your home? No 10/02/2023 Depression Answer Date Recorded Patient Health Questionnaire-2 Score 0 10/02/2023 Comments No Sex and Gender Information Value Date Recorded Sex Assigned at Female 07/23/2022 10:14 AM EDT Legal Sex Female 10:14 AM EDT Gender Identity Female 07/23/2022 10:14 AM EDT Sexual Orientation Don't know 07/23/2022 10 :14 AM EDT documented as of this encounter Progress Notes * Milana Giron - 10/21/2024 3:09 PM EST LUANNE Flores placed outbound call to patient to complete pre-visit planning. No answer at this time. Patient name and were not confirmed. CC left voicemail requesting return call. Direct contact information provided. documented in this encounter Plan of Treatment Upcoming Encounters Date Type Department Care Team (Late st Contact Info) Description 11/18/2024 10:30 AM EST Office Visit [facility] OPTOMETRY [address] [place] [address] Karla Kilgore, OD [address] [place] [address] 12/15/2024 2:00 PM EDT Office Visit [facility] MEDICINE [address] [place] [address] Luz Elena Allen ANP [address] [place] [address] documented as of this encounter Goals Goal Patient Goal Type Associated Problems Recent Progress Patient-Stated? Author Short-term: Promote adherence to treatment regimen General On track(10/30/19 24 1:01 PM EST) No Millie Kaur, Noe documented as of this encounter Visit Diagnoses Not on filedocumented in this encounter Care Teams Parcel Post Delivery Relationship Specialty Start Date End Date Luz Elena Allen ANP [address] [place] [address] PCP - General Family Medicine 05/16/21 documented as of this encounter
--- OUTSIDE RECORDS SUMMARY | 2024-11-18 08:16 | XMS_ITS | Encounter Summary ---
Author Organization [employer] Address [address] [facility] [facility] [address] [place] [address] Care Team Providers Care Head Of Digital Advertising & Integration Name Role Phone Luz Elena Allen LOVE Primary Care Provider [phone] Encounter Details Date Type Department Care Team (Late st Contact Info) Description 10/23/2024 9:30 AM EST Office Visit [facility] MEDICINE [address] [place], [place] [phone] Chayito Ho MD [address] [place], [place] [phone] Graciela (Primary Dx) Social History Tobacco Use Types Packs/Day Years Used Date Smoking Tobacco: Never Passive Smoke Exposure: Never Smokeless Tobacco: Never Alcohol Use Standard Drinks/Week Comments Never 0 (1 standard drink = 0.6 oz pur e alcohol) Housing Stability Answer Date Recorded What is your housing situation today? I have dominickpetr carnes 10/02/[address] you [...] AM EDT documented as of this encounter Last Filed Vital Signs Vital Sign Reading Time Taken Comments Blood Pressure 118/74 10/23/2024 9:17 AM EST Pulse 64 10/23/2024 9:17 AM EST Temperature 36.3 ??C (97.4 ??F) 10/23/2024 9:17 AM ES T Respiratory Rate 18 10/23/2024 9:17 AM EST Oxygen Saturation - - Inhaled Oxygen Concentration - - Weight 68.5 kg (151 lb) 10/23/2024 9:17 AM EST Height 149.9 cm (4' 11 ) 10/23/2024 9:17 AM EST Body Mass Index 30.5 10/23/2024 9:17 AM EST documented in this encounter Progress Notes * Chayito Ho MD - 10/23/2024 9:30 AM EST Subjective Patient ID: Rozina Bedolla is a 59 y.o. female who presents for No chief complaint on file.. HPI 59 yr old woman with red spot on her L cheek for months. She has been advised to use cortisone 1% and has been helping with symptoms of itching Review of Systems Constitutional: Negative for diaphoresis, fatigue and fever. HENT: Negative for ear discharge, ear pain, facial swelling and hearing loss. Respiratory: Negative for cough, choking, chest tightness and shortness of breath. Cardiovascular: Negative for chest pain and leg swelling. Gastrointestinal: Negative for abdominal distention, abdominal pain and anal bleeding. Endocrine: Negative for cold intolerance and heat intolerance. Genitourinary: Negative for enuresis, flank pain and frequency. Musculoskeletal: Negative for arthralgias, back pain and gait problem. Skin: Positive for rash. Neurological: Negative for dizziness, facial asymmetry and headaches. Psychiatric/Behavioral: Negative for agitation, behavioral problems and confusion. Objective Physical Exam Constitutional: Appearance: Normal appearance. HENT: Head: Normocephalic and atraumatic. Nose: Nose normal. Eyes: Pupils: Pupils are equal, round, and reactive to light. Pulmonary: Effort: Pulmonary effort is normal. Musculoskeletal: General: Normal range of motion. Cervical back: Normal range of motion. Skin: Comments: Erythematous patch on L cheek Neurological: General: No focal deficit present. Mental Status: She is alert. Assessment/Plan Diagnoses and all orders for this visit: Rosacea Affecting L cheek, stop cortisone 10, apply Metrogel as below, apply sunscreen RTC if no improvement. - metroNIDAZOLE (Metrogel) 0.75 % gel; Apply topically 2 times daily. documented in this encounter Plan of Treatment Upcoming Encounters Date Type Department Care Team (Late st Contact Info) Description 11/18/2024 10:30 AM EST Office Visit [facility] OPTOMETRY [address] [place] [address] Jame, Karla, OD [address] [place] [address] 12/15/2024 2:00 PM EDT Office Visit [facility] MEDICINE [address] [place] [address] Luz Elena Allen ANP [address] [place] [address] documented as of this encounter Goals Goal Patient Goal Type Associated Problems Recent Progress Patient-Stated? Author Short-term: Promote adherence to treatment regimen General On track(10/30/19 24 1:01 PM EST) No Millie Kaur, Noe documented as of this encounter Visit Diagnoses Diagnosis Rosacea- Primary documented in this encounter Care Teams Head Of Digital Advertising & Integration Relationship Specialty Start Date End Date Luz Elena Allen ANP [address] [place] [address] PCP - General Family Medicine 05/16/21 documented as of this encounter
--- OUTSIDE RECORDS SUMMARY | 2024-11-18 08:17 | XMS_ITS | Clinical Summary ---
Author Organization [employer] Address [address] [facility] [address] [place] [address] Care Team Providers Care Chef Manager Name Role Phone Young Allen LOVE Primary Care Provider [phone] Allergies Active Allergy Reactions Criticality Noted Date Comments Penicillins Rash Low 12/20/2010 10/30/23- reports rash as reaction. Medications Ventolin HFA 108 (90 Base) MCG/ACT inhalerIndications:Whe ezing INHALE 2 PUFFS BY MOUTH EVERY 4 HOURS NEEDED FOR WHEEZING OR SHORTNESS OF BREATH 18 g 1 023 Active ceramides (CeraVe) moisturizing creamIndications:Actin ic keratosis Apply 1 Application. topically if needed for dry skin. 453 g 1 024 Active acetaminophen (Tylenol) 500 MG tablet Take by mouth. Purchases OTC. Use 1-2 tablets by mouth every 4-6 hours as needed Active cholecalciferol VITAMIN D (Vitamin D-3) 50 MCG (2000 UT) tablet TAKE 1 TABLET BY MOUTH EVERY MORNING 90 tablet 2 024 Active Aspirin Low Dose 81 MG EC tabletIndications:Pure hypercholesterolemia TAKE 1 TABLET BY MOUTH EVERY MORNING 90 tablet 2 024 Active atorvastatin (Lipitor) 20 MG tabletIndications:Pure hypercholesterolemia TAKE 1 TABLET BY MOUTH EVERY EVENING 90 tablet 2 024 Active losartan (Cozaar) 100 MG tabletIndications:Esse ntial hypertension TAKE 1 TABLET BY MOUTH EVERY MORNING 90 tablet 2 024 Active metFORMIN XR (Glucophage-XR) 500 MG 24 hr tablet TAKE 2 TABLETS BY MOUTH TWICE DAILY IN THE MORNING AND IN THE EVENING 360 tablet 1 024 Active levothyroxine (Synthroid, Levoxyl) 75 MCG tabletIndications:Acqu ired hypothyroidism TAKE 1 TABLET BY MOUTH EVERY MORNING BEFORE BREAKFAST 90 tablet 1 024 Active hydrocortisone 1 % cream Apply topically if needed for irritation or rash (itching). 15 g 025 Active metroNIDAZOLE (Metrogel) 0.75 % gelIndications:Rosacea Apply topically 2 times daily. 45 g 1 025 10/23 Active FREESTYLE LITE test stripIndications:Type 2 diabetes mellitus with hyperlipidemia (CMS/HCC) ([facility]) USE DIRECTED TO TEST BLOOD SUGAR ONCE DAILY DIRECTED 50 strip 11 025 Active TRUEplus Lancets 33G miscIndications:Type 2 diabetes mellitus with hyperlipidemia (CMS/HCC) ([facility]) USE DIRECTED TO TEST BLOOD SUGAR ONCE DAILY DIRECTED 100 each 11 025 Active Alcohol Swabs (Alcohol Prep) 70 % padsIndications:Type 2 diabetes mellitus with hyperlipidemia (CMS/HCC) ([facility]) USE DIRECTED ONCE DAILY IN THE MORNING 100 each 11 025 Active Easy Touch Lancets 33G/Twist misc TEST BLOOD SUGAR ONCE DAILY DIRECTED 100 each 11 023 10/29 Discontinued FREESTYLE LITE test strip TEST BLOOD SUGAR ONCE DAILY DIRECTED 50 strip 11 023 10/29 Discontinued Alcohol Swabs (Alcohol Prep) 70 % pads USE DIRECTED ONCE DAILY IN THE MORNING 100 each 11 023 10/29 Discontinued Active Problems Problem Noted Date Diagnosed Date Atypical pneumonia 11/25/2023 Leg pain, bilateral 11/25/2023 Otitis media 11/25/2023 Varicose veins of right lower extremity with inf lammation 11/25/2023 Weight loss, non-intentional 09/10/2023 Assessment & Plan (09/10/2023 12:43 PM EST): Pt of young Allen PMhx significant for Hypothyroidism, HTN, DM and Hyperlipidemia comes in with c/o unintentional weight loss ( 8 lbs since last visit ) Exam today showed normal vital signs, normal physical exam. Etiology ? Medications? Thyroid Dz ?, Plan: Will update her Mammo ( 11/21 last), last colonoscopy, per notes done 2018, Last pap 02/2021 NIL, HPV per notes Obtain basic blood work, BMP, CBC, TSH, ESR and a plain chest x-ray. Will continue to monitor her weight and schedule a follow up with PCP. Dental plaque on multiple teeth 11/02/2022 Illiteracy 08/31/2022 Type 2 diabetes mellitus with hyperlipidemia (CM S/HCC) 06/09/2015 Acquired hypothyroidism 02/14/2012 Blood glucose abnormal 02/14/2012 Hypertension associated with diabetes (CMS/HCC) 02/14/2012 Obesity 02/14/2012 Pure hypercholesterolemia 02/14/2012 Resolved Problems Problem Noted Date Diagnosed Date Resolved Date COVID-19 08/31/2022 01/14/2024 Assessment & Plan (04/11/2023 9:42 AM EDT): Rest drink plenty of fluids quarentine as per CDC guidelines If symptoms persist or worse seek medical attention immediately Encounters Date Type Department Care Team Description 11/03/2024 10:15 AM EST Office Visit [facility] [address] [place] [phone] Young Allen ANP Type 2 diabetes mellitus with hyperlipidemia (CMS/HCC) (CMS/HCC) (Primary Dx); Hypertension associated with diabetes (CMS/HCC) (CMS/HCC); Acquired hypothyroidism; Healthcare maintenance; Encounter for immunization 11/03/2024 Travel 10/29/2024 Refill [facility] [address] [place] [phone] Young Allen ANP Type 2 diabetes mellitus with hyperlipidemia (CMS/HCC) (CMS/HCC) 10/23/2024 9:30 AM EST Office Visit [facility] [address] [place] [phone] Chayito Ho MD Rosacea (Primary Dx) 10/23/2024 Travel 10/21/2024 Patient Outreach [facility] [address] [place] [phone] Young Allen ANP Pre-visit Planning (Pre-visit planning - LVM ) 10/07/2024 9:20 AM EST Office Visit [facility] [address] [place] [phone] Maciel Bradley MD Skin lesion of face (Primary Dx); Hypertension associated with diabetes (CMS/HCC) (CMS/HCC) 09/14/2024 Telephone [facility] [address] [place] [address] Suzette Salas MA October recall 08/31/2024 Refill [facility] [address] [place] [phone] Young Allen ANP Acquired hypothyroidism from Last 3 Months Immunizations Name Administration Dates Next Due DTaP 12/22/2008 Hep B, adult 11/02/2022,01/26/2013 Influenza Injectable Quadriv alant Preservative Free IIV4 MDCK 07/22/2020 Influenza injectable quadriv alent IIV4 with preservative 08/19/2017,08/08/2016 Influenza injectable quadriv alent preservative free 10/02/2023,06/29/2022,07/10/2021,09/03 Influenza, IIV3, injectable 06/09/2015,0 06/08/2014,05/31/2011,08/10 Influenza, seasonal, injecta ble, preservative free 11/03/2024 Moderna Covid-19 Vaccine 12+ 05/07/2022,02/02/20 21,01/04/2021 Pfizer Covid-19 Vaccine 12+ Bivalent 06/29/2022 Pneumococcal Conjugate PCV 20 10/02/2023 Pneumococcal Polysaccharide PPSV23 12/25/2021 TD (adult), 2 Lf tetanus tox oid, preservative free, adsorbed 12/22/2008 Tdap 09/11/2016 Zoster, Recombinant 10/19/2022,06/15/2021 Family History Medical History Relation Name Comments Breast cancer Mother's Sister 1 Colon cancer Mother's Sister 2 Relation Name Status Comments Mother's Sister 1 Mother's Sister 2 Social History Tobacco Use Types Packs/Day Years Used Date Smoking Tobacco: Never Passive Smoke Exposure: Never Smokeless Tobacco: Never Tobacco Cessation:Counseling Given: Not Answered Alcohol Use Standard Drinks/Week Comments Never 0 (1 standard drink = 0.6 oz pur e alcohol) Depression Answer Date Recorded Patient Health Questionnaire-9 Score 0 11/03/2024 Patient Health Questionnaire-9 Score 0 11/03/2024 Last PHQ-9: Questionnaire Data Not on file 0 11/03/2024 Housing Stability Answer Date Recorded What is [...] Date Recorded Patient Health Questionnaire-2 Score 0 11/03/2024 Comments No Sex and Gender Information Value Date Recorded Sex Assigned at Female 07/23/2022 10:14 AM EDT Legal Sex Female 10:14 AM EDT Gender Identity Female 07/23/2022 10:14 AM EDT Sexual Orientation Don't know 07/23/2022 10 :14 AM EDT Last Filed Vital Signs Vital Sign Reading Time Taken Comments Blood Pressure 129/76 11/03/2024 9:33 AM EST Pulse 73 11/03/2024 9:33 AM EST Temperature 37.2 ??C (98.9 ??F) 11/03/2024 9:33 AM ES T Respiratory Rate 17 11/03/2024 9:33 AM EST Oxygen Saturation 98% 11/03/2024 9:33 AM EST Inhaled Oxygen Concentration - - Weight 68.7 kg (151 lb 6.4 oz) 11/03/2024 9:33 A M EST Height 149.9 cm (4' 11 ) 10/23/2024 9:17 AM EST Body Mass Index 30.58 10/23/2024 9:17 AM EST Plan of Treatment Upcoming Encounters Date Type Department Care Team (Late st Contact Info) Description 11/18/2024 10:30 AM EST Office Visit [facility] [address] [place] [address] Jame, Karla, OD [address] [place] [address] 12/15/2024 2:00 PM EDT Office Visit [facility] [address] [place] [address] Young Allen, ANP [address] [place] [address] Health Maintenance Due Date Last Done Comments CT Colonography 1965 FIT DNA/Cologuard 1967 FIT 1967 FOBT 1965 Sigmoidoscopy 1965 Hepatitis B Vaccines (3 of 3 - 19+ 3-dose series) 12/28/2022 11/02/2022, 01/26/2013 Dental Oral Exam 04/04/2023 10/04/2022 Diabetes: Urine Protein Screening 04/19/2023 04/19/2022, 09/30/2020, 06/23/2020 Dental Prophylaxis 05/03/2023 11/02/2022 Dental X-Ray: Bitewings 10/05/2023 10/04/2022 COVID-19 Vaccine ( season) 2024 06/29/2022, 05/07/2022, 02/01/2021, Additional history exists SDOH Screening 10/02/2024 10/02/2023 Lipid Panel 12/01/2024 12/02/2023, 03/24, 01/18/2021, Additional history exists Diabetes: Foot Exam 04/14/2025 04/14/2024, 04/14/2024, 04/14/2024, Additional history exists Diabetes: Hemoglobin A1C 05/03/2025 025, 04/14/2024, 01/14/2024, Additional history exists Eye Exam 06/07/2025 06/07/2023, 05/24, 06/07/2023, Additional history exists Mammogram 09/22/2025 09/22/2024, 08/24, 08/08/2021, Additional history exists Dental X-Ray: Full Mouth 10/05/2025 10/04/2022 Alcohol/Substance Use Screening 11/03/2025 11/03/2024 Depression Screening 11/03/2025 11/03/2024, 11/03/19 Tobacco Screening 11/03/2025 11/03/2024 DTaP/Tdap/Td Vaccines (3 - Td or Tdap) 09/11/2026 09/11/2016, 12/22/2008, 12/22/2008 Colonoscopy 10/28/2028 10/28/2018 Colorectal Cancer Screening 10/28/2028 Cervical Cancer Screening 07/27/2029 HPV/Cotest 07/27/2029 02/28/2021 Pap Smear 07/27/2029 07/27/2024, 02/28/2021 RSV Patients and Patients Aged 60 years or older (1 - 1-dose 75+ series) 2042 HIV Screening Completed 06/23/2020 Hepatitis C Screening Completed 06/23/2020 Zoster Vaccines Completed 10/19/2022, 06/15/2021 Pneumococcal Vaccine: 50+ Years Completed 10/02/2023, 12/25/2021 Influenza Vaccine Completed 11/03/2024, , 06/29/2022, Additional history exists HIB Vaccines Aged Out No longer eligi ble based on patient's age to complete this topic HPV Vaccines Aged Out No longer eligi ble based on patient's age to complete this topic Hepatitis A Vaccines Aged Out No long er eligible based on patient's age to complete this topic IPV Vaccines Aged Out No longer eligi ble based on patient's age to complete this topic Meningococcal Vaccine Aged Out No ron daniel eligible based on patient's age to complete this topic RSV under 20 months Aged Out No longe r eligible based on patient's age to complete this topic Rotavirus Vaccines Aged Out No longer eligible based on patient's age to complete this topic Goals Goal Patient Goal Type Associated Problems Recent Progress Patient-Stated? Author Short-term: Promote adherence to treatment regimen General On track(10/30/19 1:01 PM EST) No Millie Kaur, Noe Procedures Procedure Name Priority Date/Time Associated Diagnosis Comments POCT GLUCOSE Routine 11/03/2024 10:55 AM EST Type 2 diabetes mellitus with hyperlipidemia (CMS/HCC) (CMS/HCC) POCT GLYCOSYLATED HEMOGLOBIN (HGB A1C) Routine 11/03/2024 10:54 AM EST Type 2 diabetes mellitus with hyperlipidemia (CMS/HCC) (CMS/HCC) BI MAMMOGRAM SCREENING TOMOSYNTHESIS BILATERAL Routine 09/22/2024 8:15 AM EST Breast cancer screening by mammogram PAP SMEAR Routine 07/27/2024 9:25 AM EST Cervical cancer screening LIPID PANEL, STANDARD Routine 12/02/2023 9:33 AM EDT Type 2 diabetes mellitus with hyperlipidemia (CMS/HCC) PROPHYLAXIS - ADULT Routine 11/02/2022 9 :00 AM EST Dental plaque on multiple teeth INTRAORAL - COMPLETE SERIES OF RADIOGRAPHIC IMAGES Routine 10/04/2022 11:00 AM EST COMPREHENSIVE ORAL EVALUATION - NEW OR ESTABLISHED PATIENT Routine 10/04/2022 11:00 AM EST ALBUMIN, RANDOM URINE W/CREATININE Routine 04/19/2022 10:58 AM EDT HPV MRNA E6/E7 Routine 02/28/2021 12:00 AM EDT ZZZ HISTORICAL HEPATITIS C AB W/REFL TO HCV RNA, QN, PCR Routine 06/23/2020 8:44 AM EDT HIV 1/2 ANTIGEN/ANTIBODY, FOURTH GENERATION W/RFL Routine 06/23/2020 8:44 AM EDT HM COLONOSCOPY Routine 10/28/2018 from Last 3 Months or Most Recently Relevant to Health Maintenance Results * POCT glucose manually resulted (11/03/2024 10:55 AM EST) Glucose Blood, POC 150 60 - 200 mg/dL QC Media Lot # [id number] Lot# Expiration Date [id number] Blood Capillary blood specimen / Unknown 11/03/2024 10:55 AM EST us Young Allen ANP POINT OF CARE TEST ENTER/EDIT OR DERABLES Final Result * (ABNORMAL) POCT glycosylated hemoglobin (Hgb A1c) (11/03/2024 10:54 AM EST) Hemoglobin A1C 6.2(A) 4.0 - 6.0 % QC Media Lot # [id number] Lot# Expiration Date Blood Capillary blood specimen / Unknown 11/03/2024 10:54 AM EST us Young Allen ANP POINT OF CARE TEST ENTER/EDIT OR DERABLES Final Result * BI Mammogram Screening Tomosynthesis Bilateral (09/22/2024 8:15 AM EST) Anatomical Region Laterality Modality Breast Bilateral Mammography 09/22/2024 8:15 AM EST Narrative 10/03/2024 4:31 PM EST ? [facility] [place] ? [address] ?[place] [address] ? Mammography Report ? Signed with Addenda ? Patient: Harsh Bedolla,Rozina E ?MR#: [id number] ?? [id number] ? : 1965 ?Acct:[id number] ? Age/Sex: 59 / F ?ADM Date: 09/22/ ? Loc: HO.MAMMO ? Attending Dr: Sj Childs CNM ? Ordering Physician: SJ CHILDS CNM ?Results: 1 ?? Negative ? Date of Service: 09/22/ ?Follow Up: 1 Year From Orig ?? inal Mammogram ? Procedure(s): MM tomosynthesis screening BI ?? Accession Number(s): [id number] ? cc: SJ CHILDS CNM ?ADDENDUM ? ADDENDUM #1 ? ADDENDUM: ?? The current mammogram has been reviewed and remains BI-RADS as follows ? OVERALL ASSESSMENT: ?? BI-RADS 1 - Negative ? RECOMMENDATION: ?? 1 year F/U ? Electronically signed by: ??Cami Brower DO ??10/19/2024 03:16 PM EST ?? RP ? Addendum Dictated By: ?Cami Brower, DO ? Addendum Signed By: ? <Electronically signed by Cami Brower, DO in OV> ? 10/19/24 1516 ?? Addendum Cosigned By: ? DD/ ? TD/TT: 09/22/24 ? EXAMINATION: ?? MM SCREENING DIGITAL BREAST TOMOSYNTHESIS, BILATERAL ? CLINICAL INFORMATION: ? Screening. Asymptomatic. ? COMPARISON: ?? Mammography: Comparison is made with available priors ? TECHNIQUE: ?? Digital breast mammography with tomosynthesis is performed in both the ?? craniocaudal and mediolateral oblique views along with computer-aided ?? detection (CAD). ? FINDINGS: ?? The breasts are heterogeneously dense, which may obscure small masses ?? (ACR BI-RADS breast composition Category c). ? There are no significant masses, abnormal calcifications, or other ?? abnormalities. ? MM/MM tomosynthesis screening BI ?? IMPRESSION: ?? No mammographic evidence of malignancy. ? ASSESSMENT: ? BI-RADS BI-RADS 1 - Negative ? RECOMMENDATION: ?? Routine annual mammography screening. ? 1 year F/U ? This examination should not preclude the clinical evaluation of a ?? suspicious palpable abnormality. ? This patient's information was entered into a reminder system with a ?? target due date for their next mammogram. ? Electronically signed by: ??Cami Brower DO ??10/03/2024 04:28 PM EST ?? RP ? Dictated By: ?Cami Brower DO ? Signed By: ?<Electronically signed by Cami Brower, DO in OV> ? /08/17 1628 ? DD/ 4 ? TD/TT: 09/22/24 0830 ? Tractor Sweeper Driver: ? Procedure Note Donotuseinterpreter, Image - 10/19/2024 Ana Paula [facility] [address] [place], [place] [address] Mammography Report Signed with Addenda Patient: Rozina Ramirez EMR#: [id number] : 1965Acct:[id number] Age/Sex: 59 / FADM Date: 09/22/24 Loc: HO.MAMMO Attending Dr: Sj Childs CNM Ordering Physician: SJ CHILDSesults: 1 Negative Date of Service: 09/22/24Follow Up: 1 Year From Orig ina Mammogram Procedure(s): MM tomosynthesis screening BI Accession Number(s): [id number] cc: SJ CHILDS CNM ADDENDUM ADDENDUM #1 ADDENDUM: The current mammogram has been reviewed and remains BI-RADS as follows OVERALL ASSESSMENT: BI-RADS 1 - Negative RECOMMENDATION: 1 year F/U Electronically signed by: Cami Brower DO 10/19/2024 03:16 PM [facility] Addendum Dictated By: Cami Brower DO Addendum Signed By: <Electronically signed by DO Bruce in OV> 10/19/24 1516 Addendum Cosigned By: DD/ TD/TT: 09/22/24 EXAMINATION: MM SCREENING DIGITAL BREAST TOMOSYNTHESIS, BILATERAL CLINICAL INFORMATION: Screening. Asymptomatic. COMPARISON: Mammography: Comparison is made with available priors TECHNIQUE: Digital breast mammography with tomosynthesis is performed in both the craniocaudal and mediolateral oblique views along with computer-aided detection (CAD). FINDINGS: The breasts are heterogeneously dense, which may obscure small masses (ACR BI-RADS breast composition Category c). There are no significant masses, abnormal calcifications, or other abnormalities. MM/MM tomosynthesis screening BI IMPRESSION: No mammographic evidence of malignancy. ASSESSMENT: BI-RADS BI-RADS 1 - Negative RECOMMENDATION: Routine annual mammography screening. 1 year F/U This examination should not preclude the clinical evaluation of a suspicious palpable abnormality. This patient's information was entered into a reminder system with a target due date for their next mammogram. Electronically signed by: Caim Brower DO 10/03/2024 04:28 PM EST Dictated By: Cami Brower DO Signed By: <Electronically signed by Cami Brower DO in OV> 10/03/24 1628 DD/ 4 TD/TT: 09/22/24829 Tractor Sweeper Driver: Sj Childs CNM IM BI PROCEDURES Edited Result - Final * Pap Smear (07/27/2024 9:25 AM EST) Swab Cervix uteri structure / Unknown 07/27/2024 9:25 AM EST 07/28/2024 8:55 AM EST [facility] - 07/30/2024 11:01 AM EST ----- ------- Name: Rozina Ramirez ?Age/Sex: 59/F ? : 1965 Unit#: [id number] ?? Attend Dr: SJ CHILDS CNM ?Re07/27/24 ?Status: DEP REF ? Location: HO.HHCLNP ? Disch: ? ----- ------- SPEC : [id number] ?RECD: 07/28/24 ? STATUS: ??SOUT ? REQ NUM: [id number] ? MENA: 07/27/24 ? SUBM DR: SJ CHILDS CNM ? ENTERED: ??07/28/24 ?SP TYPE: Pap Smr ?OTHR DR: ? ORDERED: ??Pap Smear ? Interpretation ?? Satisfactory for evaluation. ?? Negative for intraepithelial lesion or malignancy. ?? Scant cellularity. ? HPV High Risk: ??Negative ? HPV Genotyping 16: ??Negative ?? HPV Genotyping 18: ??Negative ?Clinical Information LMP: Postmenopausal Previous PAP test: 2020, Unknown findings ? Material Received ?? ThinPrep-Cervical ----- ------- Signed (signature on file) FLOR Richards ([facility]) 07/30/24 1101 ? ----- ------- ? END OF REPORT ? us Sj Childs [facility] CYTOLOGY ORDERABLES F inal Result [facility] [address] [place] [address] [phone] * Lipid Panel, Standard (12/02/2023 9:33 AM EDT) Triglycerides 83 <150 mg/dL [facility] Comment:Desirable Triglyceri de: less than 150 mg/dLBorderline High Triglyceride 150-199 mg/dLHigh Triglyceride: 200-499 mg/dLVery High Triglyceride: greater than or equal to 5OO mg/dL Cholesterol 163 <200 mg/dL [facility] Comment:Desirable Cholestero l: less than 200 mg/dLBorderline High Cholesterol: 200-239 mg/dLHigh Cholesterol: greater than 239 mg/dL LDL Cholesterol Calculated 89 <100 mg/dL [facility] Comment:Desirable LDL: less than 100 mg/dLNear Optimal/Above Optimal LDL: 110- 129 mg/dLBorderline High LDL: 130-159 mg/dLHigh LDL: 160-189 mg/dLVery High LDL: greater than or equal to 190 mg/dL HDL Cholesterol 58 >40 mg/dL [facility] Comment:Desirable HDL: great er than 40 mg/dL Note: This HDL assay may give artificially low results in patients with liver disease. Blood Venous blood specimen / Unknown 12/02/2023 9:33 AM EDT 12/02/2023 11:04 AM EDT Young Allen ANP LAB BLOOD ORDERABLES Final Resul t Performing Organization Address [facility] de Phone Number [facility] [address] [place] [address] [phone] * ALBUMIN, RANDOM URINE W/CREATININE (04/19/2022 10:58 AM EDT) Microalbumin Urine 1.8 See Note: mg/dL [facility] Comment: Reference Range: ?? Reference Range Not established Microalb/Creat Ratio 8 <30 mcg/mg creat [facility] Comment: ?? The ADA defines abnormalities in albumin excretion as follows: ?? Albuminuria Category ?Result (mcg/mg creatinine) ?? Normal to Mildly increased ?? <30 Moderately increased ? 30-299 ?? Severely increased ? > OR = 300 ?? The ADA recommends that at least two of three specimens collected within a 3-6 month period be abnormal before considering a patient to be within a diagnostic category. Creatinine, Urine 240 20 - 275 mg/dL [facility] 04/19/2022 10:5 8 AM EDT us Young Allen ANP LAB URINE ORDERABLES Final Resul t Performing Organization Address [facility] Co de Phone Number [facility] [address] * HPV mRNA E6/E7 (02/28/2021 12:00 AM EDT) HPV nRNA E6/E7 Not Detected Not Detected [facility] Comment: Methodology: Flooring Mechanic-Mediated Amplification This assay detects E6/E7 viral messenger RNA (mRNA) from 14 high-risk HPV types (16,18,31,33,35,39,45,51,52,56,58,59,66,68). ? The analytical performance characteristics of this assay have been determined by [employer]. The modifications have not been cleared or approved by the FDA. This assay has been validated pursuant to the CLIA regulations and is used for clinical purposes. ?? For additional information, please refer to http://[employer]/faq/TDQ192m7 (This link if provided for information/ educational purposes only.) 02/28/2021 Carlos Godoy [facility] LAB BLOOD ORDERABLES Final Result [facility] [address] * HEPATITIS C AB W/REFL TO HCV RNA, QN, PCR (06/23/2020 8:44 AM EDT) HEPATITIS C ANTIBODY NON-REACT PATY NON-REACT PATY [facility] INDEX 0.05 <1.00 [facility] Comment: ?? HCV antibody was non-reactive. There is no laboratory ?? evidence of HCV infection. ?? In most cases, no further action is required. However, if recent HCV exposure is suspected, a test for HCV RNA (test code 48601) is suggested. ?? For additional information please refer to http://[employer]/faq/PCV05s5 (This link is being provided for informational/ educational purposes only.) ?? HEPATITIS C ANTIBODY NON-REACT PATY NON-REACT PATY [facility] INDEX 0.05 <1.00 [facility] Comment: ?? HCV antibody was non-reactive. There is no laboratory ?? evidence of HCV infection. ?? In most cases, no further action is required. However, if recent HCV exposure is suspected, a test for HCV RNA (test code 13405) is suggested. ?? For additional information please refer to http://[employer]/faq/GLD55t1 (This link is being provided for informational/ educational purposes only.) ?? 06/23/2020 8:44 AM EDT Carlos Godoy STRAP SETTER HISTORICAL/NON ORDERABLE LA BS Final Result [facility] [address] [place] [address], * HIV 1/2 ANTIGEN/ANTIBODY,FOURTH GENERATION W/RFL (06/23/2020 8:44 AM EDT) HIV-1/2 ANTIGEN AND ANTIBODIES, 4TH GENERATION W/ REFLEX NON-REACT PATY NON-REACT PATY [facility] Comment: HIV-1 antigen and HIV-1/HIV-2 antibodies were not detected. There is no laboratory evidence of HIV infection. ?? PLEASE NOTE: This information has been disclosed to you from records whose confidentiality may be protected by state law. ??If your state requires such protection, then the state law prohibits you from making any further disclosure of the information without the specific written consent of the person to whom it pertains, or as otherwise permitted by law. A general authorization for the release of medical or other information is NOT sufficient for this purpose. ? For additional information please refer to http://Saqina.Postabon.videoNEXT/faq/QHR695 (This link is being provided for informational/ educational purposes only.) ? The performance of this assay has not been clinically validated in patients less than 2 years old. ?? HIV-1/2 ANTIGEN AND ANTIBODIES, 4TH GENERATION W/ REFLEX NON-[facility]ACT [facility] Comment: HIV-1 antigen and HIV-1/HIV-2 antibodies were not detected. There is no laboratory evidence of HIV infection. ?? PLEASE NOTE: This information has been disclosed to you from records whose confidentiality may be protected by state law. ??If your state requires such protection, then the state law prohibits you from making any further disclosure of the information without the specific written consent of the person to whom it pertains, or as otherwise permitted by law. A general authorization for the release of medical or other information is NOT sufficient for this purpose. ? For additional information please refer to http://Saqina.CybEye/faq/SIH695 (This link is being provided for informational/ educational purposes only.) ? The performance of this assay has not been clinically validated in patients less than 2 years old. ?? 06/23/2020 8:44 AM EDT Carlos Godoy STRAP SETTER LAB BLOOD ORDERABLES Final Result Performing Organization Address City/State/[facility] Co de Phone Number [facility] [address] * Colonoscopy (10/28/2018) Colonoscopy Normal Normal Historical Provider MD HEALTH MAINTENANCE Final Result from Last 3 Months or Most Recently Relevant to Health Maintenance Insurance [facility] ST[facility] ADULT Care Teams Chef Manager Relationship Specialty Start Date End Date Young Allen ANP [address] [place] [id number] PCP - General Family Medicine 05/16/21
--- OUTSIDE RECORDS SUMMARY | 2024-11-18 08:17 | XMS_ITS | Encounter Summary ---
Author Organization [employer] Address [address] [facility] 7t [place] [address] Care Team Providers Care Line Supervisor Name Role Phone Luz Elena Allen Primary Care Provider Reason for Visit * Reason Comments Med Refill Encounter Details Date Type Department Care Team ([facility] st Contact Info) Description 10/29/2024 Refill [facility] MEDICINE [address] [place] [address] Luz Elena Allen ANP [address] [place] [address] Type 2 diabetes mellitus with hyperlipidemia (CMS/HCC) ([facility]) Social History Tobacco Use Types Packs/Day Years [...] t he electric, gas, oil or water [employer] threatened to shut off services in your [...] AM EDT documented as of this encounter Plan of Treatment Upcoming Encounters Date Type Department Care Team (Late st Contact Info) Description 11/18/2024 10:30 AM EST Office Visit [facility] OPTOMETRY [address] [place] [address] JameKarla reis, OD [address] [place] [address] 12/15/2024 2:00 PM EDT Office Visit [facility] MEDICINE [address] [place] [address] Luz Elena Allen ANP [address] [place] [address] documented as of this encounter Goals Goal Patient Goal Type Associated Problems Recent Progress Patient-Stated? Author Short-term: Promote adherence to treatment regimen General On track(10/30/19 24 1:01 PM EST) No Millie Kaur, Noe documented as of this encounter Visit Diagnoses Diagnosis Type 2 diabetes mellitus with hyperlipidemia (CMS/HCC) (CMS/HCC) documented in this encounter Care Teams Line Supervisor Relationship Specialty Start Date End Date Luz Elena Allen ANP [address] [place] [address] PCP - General Family Medicine 05/16/21 documented as of this encounter
--- OUTSIDE RECORDS SUMMARY | 2024-11-18 08:17 | XMS_ITS | Encounter Summary ---
Author Organization [employer] Address [address] [facility] 7t [place] [address] Care Team Providers Care Eyeglass Cutter Name Role Phone Luz Elena Allen LOVE Primary Care Provider [phone] Encounter Details Date Type Department Care Team (Latest Contact Info) Description 11/03/2024 Travel Social History Tobacco Use Types Packs/Day Years [...] Description 11/18/2024 10:30 AM EST Office Visit [facility] OPTOMETRY [address] [place] [address] Jame, Karla, OD [address] [place] [address] 12/15/2024 2:00 PM EDT Office Visit [facility] MEDICINE [address] [place] [address] Luz Elena Allen ANP [address] [place] [address] documented as of this encounter Goals Goal Patient Goal Type Associated Problems Recent Progress Patient-Stated? Author Short-term: Promote adherence to treatment regimen General On track(10/30/19 24 1:01 PM EST) No Millie Kaur, PharmD documented as of this encounter Visit Diagnoses Not on filedocumented in this encounter Additional Health Concerns Assessment Noted Time PHQ-9 Depression Total Score: 0 11/03/19 25 9:34 AM EST documented as of this encounter Care Teams Eyeglass Cutter Relationship Specialty Start Date End Date Luz Elena Allen ANP [address] [place] [address] PCP - General Family Medicine 05/16/21 documented as of this encounter
--- OUTSIDE RECORDS SUMMARY | 2024-11-18 08:17 | XMS_ITS | Encounter Summary ---
Author Organization [employer] Address [address] [facility] 7t [place] [address] Care Team Providers Care Hand Brush Filler Name Role Phone Luz Elena Allen Primary Care Provider [phone] Reason for Visit * Reason Comments Med Refill Encounter Details Date Type Department Care Team ([facility] st Contact Info) Description 10/03/2023 Refill [facility] MEDICINE [address] [place] [address] Luz Elena Allen ANP [address] [place] [address] Acquired hypothyroidism Social History Tobacco Use Types Packs/Day Years [...] Patient Health Questionnaire-2 Score 0 10/02/2023 Comments Unknown Sex and Gender Information Value Date Recorded Sex Assigned at Female 07/23/2022 10:14 AM EDT Legal Sex Female 10:14 AM EDT Gender Identity Female 07/23/2022 10:14 AM EDT Sexual Orientation Don't know 07/23/2022 10 :14 AM EDT documented as of this encounter Plan of Treatment Upcoming Encounters Date Type Department Care Team (Late st Contact Info) Description 11/18/2024 10:30 AM EST Office Visit [facility] OPTOMETRY [address] [place] [address] Karla Kilgore, OD [address] [place] [address] 12/15/2024 2:00 PM EDT Office Visit [facility] MEDICINE [address] [place] [address] Luz Elena Allen ANP [address] [place] [address] documented as of this encounter Visit Diagnoses Diagnosis Acquired hypothyroidism Unspecified hypothyroidism documented in this encounter Care Teams Hand Brush Filler Relationship Specialty Start Date End Date Luz Elena Allen ANP [address] [place] [address] PCP - General Family Medicine 05/16/21 documented as of this encounter
--- OUTSIDE RECORDS SUMMARY | 2024-11-18 08:17 | XMS_ITS | Encounter Summary ---
Author Organization [employer] Address [address] [facility] 7t [place] [address] Care Team Providers Care Pediatric Immunologist Name Role Phone Luz Elena Allen LOVE Primary Care Provider [phone] Encounter Details Date Type Department Care Team (Latest Contact Info) Description 10/23/2024 Travel Social History Tobacco Use Types Packs/Day [...] Description 11/18/2024 10:30 AM EST Office Visit [facility] OPTOMETRY [address] [place] [address] Jame, Karla, OD [address] [place] [address] 12/15/2024 2:00 PM EDT Office Visit [facility] MEDICINE [address] [place] [address] Luz Elena Allen ANP [address] [place] [address] documented as of this encounter Goals Goal Patient Goal Type Associated Problems Recent Progress Patient-Stated? Author Short-term: Promote adherence to treatment regimen General On track(10/30/19 24 1:01 PM EST) No Millie Kaur, PharmD documented as of this encounter Visit Diagnoses Not on filedocumented in this encounter Care Teams Pediatric Immunologist Relationship Specialty Start Date End Date Luz Elena Allen ANP [address] [place], [place] [phone] PCP - General Family Medicine 05/16/21 documented as of this encounter
--- OUTSIDE RECORDS SUMMARY | 2024-11-18 08:17 | XMS_ITS | Encounter Summary ---
Author Organization [employer] Address [address] [facility] [address] [place] [address] Care Team Providers Care Valet Attendant Name Role Phone Luz Elena Allen Primary Care Provider [phone] Reason for Visit * Reason Comments Follow-up A1c Encounter Details Date Type Department Care Team (Latest Contact Info) Description 11/03/2024 10:15 AM EST Office Visit [facility] MEDICINE [address] [place] [address] Luz Elena Allen ANP [address] [place] [address] Type 2 diabetes mellitus with hyperlipidemia (CMS/HCC) (CMS/HCC) (Primary Dx); Hypertension associated with diabetes (CMS/HCC) (CMS/HCC); Acquired hypothyroidism; Healthcare maintenance; Encounter for immunization Social History Tobacco Use Types Packs/Day Years [...] oz) 11/03/2024 9:33 A M EST Height - - Body Mass Index 30.58 10/23/2024 9:17 AM EST documented in this encounter Plan of Treatment Upcoming Encounters Date Type Department Care Team (Late st Contact Info) Description 11/18/2024 10:30 AM EST Office Visit [facility] OPTOMETRY [address] [place] [address] Karla Kilgore, OD [address] [place] [address] 12/15/2024 2:00 PM EDT Office Visit [facility] MEDICINE [address] [place] [address] Luz Elena Allen ANP [address] [place] [address] Scheduled Orders Name Type Priority Associated Diagnoses Orde r Schedule Albumin, Random Urine W/Creatinine Lab Routine Type 2 diabetes mellitus with hyperlipidemia (CMS/HCC) (CMS/HCC) Hypertension associated with diabetes (CMS/HCC) (CMS/HCC) Expected: 11/03/2024 (Approximate), Expires: 11/03/2025 Lipid Panel, Standard Lab Routine Type 2 diabetes mellitus with hyperlipidemia (CMS/HCC) (CMS/HCC) Expected: 11/03/2024 (Approximate), Expires: 11/03/2025 Vitamin B12 Lab Routine Type 2 diabetes mellitus with hyperlipidemia (CMS/HCC) (CMS/HCC) Expected: 11/03/2024 (Approximate), Expires: 11/03/2025 TSH W/Reflex to FT4 Lab Routine Acquired hypothyroidism Expected: 11/03/2024 (Approximate), Expires: 11/03/2025 Basic Metabolic Panel Lab Routine Type 2 diabetes mellitus with hyperlipidemia (CMS/HCC) (CMS/HCC) Hypertension associated with diabetes (CMS/HCC) (CMS/HCC) Expected: 11/03/2024 (Approximate), Expires: 11/03/2025 Hepatitis B Core Antibody, Total Lab Routine Healthcare maintenance Expected: 11/03/2024 (Approximate), Expires: 11/03/2025 Hepatitis B surface antigen, EIA Lab Routine Healthcare maintenance Expected: 11/03/2024 (Approximate), Expires: 11/03/2025 Hepatitis B Surface Antibody, Qualitative Lab Routine Healthcare maintenance Expected: 11/03/2024 (Approximate), Expires: 11/03/2025 documented as of this encounter Goals Goal Patient Goal Type Associated Problems Recent Progress Patient-Stated? Author Short-term: Promote adherence to treatment regimen General On track(10/30/19 24 1:01 PM EST) No Millie Kaur, PharmD documented as of this encounter Procedures Procedure Name Priority Date/Time Associated Diagnosis Comments POCT GLUCOSE Routine 11/03/2024 10:55 AM EST Type 2 diabetes mellitus with hyperlipidemia (CMS/HCC) (CMS/HCC) POCT GLYCOSYLATED HEMOGLOBIN (HGB A1C) Routine 11/03/2024 10:54 AM EST Type 2 diabetes mellitus with hyperlipidemia (CMS/HCC) (CMS/HCC) documented in this encounter Results * POCT glucose manually resulted (11/03/2024 10:55 AM EST) Glucose Blood, POC 150 60 - 200 mg/dL QC Media Lot # [id number] Lot# Expiration Date ,025 Blood Capillary blood specimen / Unknown 11/03/2024 10:55 AM EST us Luz Elena ALEMAN POINT OF CARE TEST ENTER/EDIT OR DERABLES Final Result * (ABNORMAL) POCT glycosylated hemoglobin (Hgb A1c) (11/03/2024 10:54 AM EST) Hemoglobin A1C 6.2(A) 4.0 - 6.0 % QC Media Lot # [id number] Lot# Expiration Date , Blood Capillary blood specimen / Unknown 11/03/2024 10:54 AM EST Luz Elena ALEMAN POINT OF CARE TEST ENTER/EDIT OR DERABLES Final Result documented in this encounter Visit Diagnoses Diagnosis Type 2 diabetes mellitus with hyperlipidemia (CMS/HCC) (CMS/HCC)- Primary Hypertension associated with diabetes (CMS/HCC) (CMS/HCC) Unspecified essential hypertension Acquired hypothyroidism Unspecified hypothyroidism Healthcare maintenance Encounter for immunization documented in this encounter Additional Health Concerns Assessment Noted Time PHQ-9 Depression Total Score: 0 11/03/19 25 9:34 AM EST documented as of this encounter Care Teams Valet Attendant Relationship Specialty Start Date End Date Luz Elena Allen ANP [address] [place] [address] PCP - General Family Medicine 05/16/21 documented as of this encounter
--- OUTSIDE RECORDS SUMMARY | 2024-11-18 08:18 | XMS_ITS | Encounter Summary ---
Author Organization [employer] Address [address] [facility] [address] [place] [address] Care Team Providers Care Senior Foreman Name Role Phone Luz Elena Allen LOVE Primary Care Provider [phone] Encounter Details Date Type Department Care Team (Late Contact Info) Description 11/22/2022 Abstract [facility] ADULT DENTAL [address] [place] [address] Cornel Patton, DMD [address] [place] [address] Social History Tobacco Use Types Packs/Day Years Used Date Smoking Tobacco: Never Passive Smoke Exposure: Never Smokeless Tobacco: Never Alcohol Use Standard Drinks/Week Comments Never 0 (1 standard drink = 0.6 oz pur e alcohol) Comments Unknown Sex and Gender Information Value Date Recorded Sex Assigned at Female 07/23/2022 10:14 AM EDT Legal Sex Female 10:14 AM EDT Gender Identity Female 07/23/2022 10:14 AM EDT Sexual Orientation Don't know 07/23/2022 10 :14 AM EDT COVID-19 Exposure Response Date Recorded In the last 10 days, have yo u been in contact with someone who was confirmed or suspected to have Coronavirus/COVID-19? No / Unsure 11/16/2022 8:04 AM EST documented as of this encounter Plan of Treatment Upcoming Encounters Date Type Department Care Team (Late Contact Info) Description 11/18/2024 10:30 AM EST Office Visit [facility] OPTOMETRY [address] [place] [address] Karla Kilgore, OD [address] [place] [address] 12/15/2024 2:00 PM EDT Office Visit [facility] MEDICINE [address] [place] [address] Luz Elena Allen ANP [address] [place] [address] documented as of this encounter Visit Diagnoses Not on filedocumented in this encounter Care Teams Senior Foreman Relationship Specialty Start Date End Date Luz Elena Allen ANP [address] [place] [address] PCP - General Family Medicine 05/16/21 documented as of this encounter
[2024-11-18 11:40] LABS: Anion Gap 11 (12-20); Blood Urea Nitrogen 16 mg/dL (9-16); Calcium 9.4 mg/dL (8.4-10.2); Carbon Dioxide 25 mmol/L (22-29); Chloride 109 mmol/L (96-108); Cholesterol 181 mg/dL (<200); Estimated Glomerular Filt Rate > 60; Glucose Random 105 mg/dL (60-115); HDL Cholesterol 57 mg/dL (>40); LDL Cholesterol Calculated 111 mg/dL (<100); Potassium 4.2 mmol/L (3.3-5.1); Sodium 141 mmol/L (135-145); Triglycerides 69 mg/dL (<150)
[2024-11-18 11:44] LABS: Creatinine Urine 77.49 mg/dL; Microalbumin Urine < 5.0 mg/L
[2024-11-18 11:47] LABS: TSH reflex Free T4 2.29 uIU/mL (0.32-4.0)
[2024-11-18 11:53] LABS: Vitamin B12 232 pg/mL (200-900)
[2024-11-19 08:54] LABS: HBS Num1 1.82 mIU/mL (0-7.99); HBc Num1 0.12 S/CO (0.00-0.79); HBsAGNum1 0.29 S/CO (0.00-0.99); Hepatitis B Core Antibody Nonreactive (Nonreactive); Hepatitis B Surface Antigen Negative (Negative); ~Hepatitis B Surface Antibody NONREACTIVE (Nonreactive)
== END 2024-11-18 08:04 | disposition home or self-care (01) ==
LOC: HO.HHCL 08:03
PROVIDERS: Visit Provider Nurse Practitioner Primary Care
DX: E03.9 Hypothyroidism, unspecified (principal); E11.69 Type 2 diabetes mellitus with other specified complication; E78.5 Hyperlipidemia, unspecified; E11.59 Type 2 diabetes mellitus with other circulatory complications; I15.2 Hypertension secondary to endocrine disorders; Z00.00 Encounter for general adult medical examination without abnormal findings
CPT/HCPCS: 36415; 80048; 80061; 82570; 82607; 84443; 86704; 86706; 87340